=== PATIENT | male | born 1955 | race Caucasian/White ===

== ENCOUNTER 2017-02-15 19:02 | Emergency (ER) | payer MEDICARE, OTHER ==
[~2017-02-15] VITALS: Ht 172.7 cm; Wt 68.0 kg
[~2017-02-15 19:02] MED LIST: ATOR40TA PO; Benazepril Hcl PO; CARV6.252 PO; CLOP75TA2 PO; FOLI1TAB16 PO; FURO-145 PO; IPRA3AMP IH; Isosorbide Mononitrate PO
[2017-02-15] MEDS ORDERED: LIDOCAINE /MPF 1% VIAL 5 ML VIAL ONE (20:07)
[2017-02-15] MEDS ORDERED: LIDOCAINE HCL/PF 1% 30 ML SDV ONE (20:10)
--- NOTE | 2017-02-15 20:10 | NUR ---
RECEIVED REPORT AT THIS TIME. HERE FOR NECK AND LOWER BACK ABSCESSES "X2 DAYS". DENIES FEVER/N/V OR ANY OTHER C/O. RESP EVEN AND UNLABORED. CARE PLAN DISCUSSED.
[2017-02-15 21:13] VITALS: BP 122/69
--- NOTE | 2017-02-15 21:13 | NUR ---
STILL AWAITING TRANSPORT.
--- NOTE | 2017-02-15 21:29 | NUR ---
REPORT GIVEN TO [facility] EMT TRANSPORT TEAM
--- NOTE | 2017-02-15 21:32 | NUR ---
DPatient discharged to home in stable condition. Written and verbal after care instructions given. Patient verbalizes understanding of instruction.
== END 2017-02-15 21:34 | disposition home or self-care (01) ==
LOC: ER 19:03
DX: L02.11 Cutaneous abscess of neck (principal); I11.0 Hypertensive heart disease with heart failure; I25.2 Old myocardial infarction; I42.9 Cardiomyopathy, unspecified; I48.91 Unspecified atrial fibrillation; I50.9 Heart failure, unspecified; Z95.0 Presence of cardiac pacemaker; F17.200 Nicotine dependence, unspecified, uncomplicated
CPT/HCPCS: 10061; 99284; A4606; A6402; A6407; J3490; Z7610

== ENCOUNTER 2017-05-06 09:43 | Inpatient (IN) | payer MEDICARE, OTHER ==
[~2017-05-06] VITALS: Ht 180.3 cm; Wt 80.7 kg
--- NOTE | 2017-05-06 10:00 | NUR ---
PT BIB PA WITH A C/O LT INGIUNAL HERNIA. PT IS AMBULATORY WITH A CANE. PT'S PMD IS DR. STREET. DR. BILLINGS WAS AT THE BEDSIDE UPON ARRIVAL. PT REFUSED TO UNDRESS AND THEN REFUSED TO ALLOW DR. BILLINGS TO EXAMINE HIS HERNIA. PT AMBULATED TO THE BATHROOM AND URINE SAMPLE WAS OBTAINED.
--- NOTE | 2017-05-06 10:01 | NUR ---
MALAIKA RICE PAGED
--- NOTE | 2017-05-06 10:15 | NUR ---
IV ATTEMPT X1. PT WAS UNCOMFORTABLE. NEEDED TO STAND. STOPPED IV INSERTION.
[2017-05-06] MEDS ORDERED: BENA20TA78 PO (10:20)
[2017-05-06] MEDS ORDERED: HYDR-552 PO (10:20)
[2017-05-06] MEDS ORDERED: GABA-532 PO (10:20)
[2017-05-06] MEDS ORDERED: ALBU18HF2 IH (10:20)
[2017-05-06] MEDS ORDERED: ACET-868 PO (10:20)
[2017-05-06] MEDS ORDERED: MAGN400O6 PO (10:20)
[2017-05-06] MEDS ORDERED: POTA10TA15 PO (10:20)
[2017-05-06] MEDS ORDERED: ATOR10TA PO (10:20)
[2017-05-06] MEDS ORDERED: CHOL100044 PO (10:20)
[2017-05-06] MEDS ORDERED: BISA10SU8 RC (10:20)
[2017-05-06] MEDS ORDERED: ARIP5TAB4 PO (10:20)
[2017-05-06] MEDS ORDERED: CARV3.122 PO (10:20)
[2017-05-06] MEDS ORDERED: SPIR25TA PO (10:20)
[2017-05-06] MEDS ORDERED: DICL30AD3 PO (10:20)
[2017-05-06] MEDS ORDERED: FURO20TA4 PO (10:20)
[2017-05-06] MEDS ORDERED: DOCU-270 PO (10:20)
[2017-05-06] MEDS ORDERED: LORA1TAB PO (10:20)
[2017-05-06] MEDS ORDERED: FAMO20TA8 PO (10:20)
[2017-05-06] MEDS ORDERED: SERT25TA PO (10:20)
[2017-05-06] MEDS ORDERED: HYDR-548 PO (10:20)
[2017-05-06] MEDS ORDERED: BENZ1TAB7 PO (10:20)
[2017-05-06] MEDS ORDERED: LAMO25TA5 PEG (10:20)
--- NOTE | 2017-05-06 10:20 | NUR ---
EKG AT THE BEDSIDE.
--- NOTE | 2017-05-06 10:30 | NUR ---
BLOOD DRAW IN PROGRESS AT THE BEDSIDE.
--- NOTE | 2017-05-06 10:35 | NUR ---
DIGITAL PRESS OPERATOR AT BEDSIDE
[2017-05-06 10:43] LABS: BASOPHILS % (AUTO) 0.3 % (0.0-2.0); EOSINOPHILS # (AUTO) 0.1 /CMM (0.0-0.7); EOSINOPHILS % (AUTO) 1.1 % (0.0-6.0); HEMATOCRIT 34 % (39-51); HEMOGLOBIN 11.1 g/dL (13.5-17.5); LYMPHOCYTES # (AUTO) 0.7 /CMM (0.8-4.8); LYMPHOCYTES % (AUTO) 6.2 % (20.0-44.0); MEAN CORPUSCULAR HEMOGLOBIN 29 PG (26.0-33.0); MEAN CORPUSCULAR HGB CONC 33 g/dl (31.0-36.0); MEAN CORPUSCULAR VOLUME 87 fL (80-96); MONOCYTES # (AUTO) 0.3 /CMM (0.1-1.30); MONOCYTES % (AUTO) 3.1 % (2.0-12.0); NEUTROPHILS # (AUTO) 10.1 /CMM (1.8-8.9); NEUTROPHILS % (AUTO) 89.3 % (43.0-81.0); PLATELET COUNT (AUTO) 263 /CMM (150-450); RDW COEFFICIENT OF VARIATION 15.4 (11.5-15.0); RED BLOOD CELL COUNT(AUTO) 3.87 MIL/uL (4.5-6.0); WHITE BLOOD COUNT (AUTO) 11.2 K/uL (4.3-11.0)
[2017-05-06 10:52] LABS: CALCIUM, SERUM 9.2 mg/dL (8.5-10.1); CREATININE 1.5 mg/dL (0.6-1.3); POTASSIUM 4.5 mmol/L (3.5-5.1)
[2017-05-06 10:55] LABS: INR 0.89 (0.87-1.13); PROTHROMBIN TIME 9.3 SECS (9.5-12.7)
--- NOTE | 2017-05-06 11:17 | NUR ---
CALLING REPORT TO AYAZ LANDAVERDE ([phone])
[2017-05-06 11:50] VITALS: BP 109/63
--- NOTE | 2017-05-06 11:50 | NUR ---
RN NOTES RECEIVED PT FROM ER IN ROOM 115-2, A/Ox4, RESPIRATION EVEN AND UNLABORED, ON RA , O2 SAT 97%, NO SOB NOTED, C/O R INGUINAL PAIN , DR STREET NOTIFIED REGARDING ADMISSION ORDER AND NEED FOR PAIN MEDICATIONS . L THUMB IV G 22 SITE CDI, BED LOCKED AND IN LOWEST POSITION , SR UP x3, CALL LIGHT WITHIN EASY REACH, CONTINUE TO MONITOR PT CLOSELY .
[2017-05-06] MEDS ORDERED: BISACODYL SUPP (10 MG) 10 MG/SUPP.RECT SUPP.RECT RC PRN (13:30)
[2017-05-06] MEDS ORDERED: ACETAMINOPHEN 325 MG TABLET PO PRN (13:30)
[2017-05-06] MEDS ORDERED: HYDROCODONE/APAP 10/325MG 1 EA TABLET PO PRN (13:30)
[2017-05-06] MEDS ORDERED: MAGNESIUM HYDROXIDE 30 ML UDC PO PRN (13:30)
[2017-05-06] MEDS ORDERED: HYDROMORPHONE HCL 2 MG TABLET PO PRN (13:30)
[2017-05-06] MEDS ORDERED: HYDROCODONE/APAP 5/325MG 1 EACH TABLET PO PRN (13:30)
[2017-05-06] MEDS ORDERED: HYDROMORPHONE 1 MG/1 ML DISP.SYRIN IV PRN (14:00)
[2017-05-06] MEDS: ASPIRIN EC 81 MG TABLET.DR PO SCH ×2 (14:00→14:09)
--- NOTE | 2017-05-06 14:00 | NUR ---
RN NOTES PT LEAVES TO FLOOR TO SMOKE WITHOUT NOTIFY STAFF MEMBERS . DR STREET NOTIFIED. ADVISED AND EDUCATED THE PT REGARDING THE RISKS OF SMOKING AND NOT NOTIFYING THE STAFF MEMBERS, PT VERBALIZES UNDERSTANDING BUT STATED STILL WILL GO OUT TO SMOKE.
[2017-05-06] MEDS: SPIRONOLACTONE 25 MG TABLET PO SCH (14:08)
[2017-05-06] MEDS: HYDROMORPHONE INJ 2 MG/ML DISP.SYRIN IV PRN ×4 (14:09→23:21)
--- NOTE | 2017-05-06 14:10 | NUR ---
RN NOTES PT REFUSED TO HIS ASPIRIN . PT EDUCATED HOW IMPORTANT IT IS TO FOLLOW THE PLAN OF CARE AND MD'S ORDER , PT STILL REFUSED TO TAKE IT .
[2017-05-06] MEDS: LamoTRIgine 25 MG TABLET PO SCH (17:23)
--- NOTE | 2017-05-06 18:32 | NUR ---
RN NOTES PT SITTING AT THE EDGE OF THE BED, EATING DINNER , VSS STABLE , MEDICATED FOR INGUINAL PAIN PER MD ORDER , WILL ENDORSE TO COIL INSPECTOR NURSER FOR SONIDO
[2017-05-06] MEDS ORDERED: ALBUTEROL FS 2.5 MG/3 ML VIAL.NEB NEB PRN (19:30)
--- NOTE | 2017-05-06 19:30 | NUR ---
RN/MS NOTES: RECEIVED PT. IN BED SITTING A/O X 4. NOT IN ANY RESPIRATORY DISTRESS NOTED. HL ON RT. THUMP PATENT AND INTACT W/ NO S/S OF INFECTION/INFILTRATION NOTED. PT. REQUESTED SMOKING BREAK AND PAIN SHOT. PAIN MEDS DILAUDID 2 MG IV GIVEN PER ORDER. PT. ACCOMPAINED BY STAFF FOR SMOKING BREAK. PT. CONSTANTLY PACING UP AND DOWN THE HALLWAY. BRP. ABLE TO AMBULATE W/ CANE. CALL LIGHT W/ REACH. ALL NEEDS MEET.
[2017-05-06] MEDS: BENZTROPINE MESYLATE (1 MG) 1 MG TABLET PO SCH (21:07)
[2017-05-06] MEDS: GABAPENTIN 100 MG CAPSULE PO SCH (21:07)
[2017-05-06] MEDS: CARVEDILOL 3.125 MG TABLET PO SCH ×2 (21:07→21:09)
[2017-05-06] MEDS: FAMOTIDINE (20 MG) 20 MG TABLET PO SCH (21:07)
[2017-05-06] MEDS: ARIPIPRAZOLE 5 MG TABLET PO SCH (21:07)
[2017-05-06] MEDS: ATORVASTATIN 10 MG TABLET PO SCH (21:07)
[2017-05-07] VITALS (28 sets, daily range): BP systolic 52–152; BP diastolic 34–102
[2017-05-07] MEDS ORDERED: POTASSIUM CHLORIDE 20 MEQ TAB.PRT.SR PO ONE (01:00)
[2017-05-07] MEDS ORDERED: FUROSEMIDE 20 MG TABLET PO SCH ×2 (01:00→09:00)
[2017-05-07] MEDS ORDERED: FUROSEMIDE 20 MG TABLET ONE (01:07)
[2017-05-07] MEDS ORDERED: POTASSIUM CHLORIDE 10 MEQ TABLET.SA ONE (01:08)
[2017-05-07] MEDS: HYDROMORPHONE INJ 2 MG/ML DISP.SYRIN IV PRN ×5 (02:43→21:01)
[2017-05-07] MEDS: GABAPENTIN 100 MG CAPSULE PO SCH ×3 (05:27→20:45)
--- NOTE | 2017-05-07 07:25 | NUR ---
RN OPEN NOTES RECEIVED REPORT FROM PEANUT SORTER NURSE. WILL CONTINUE TO MONITOR AND ASSESS PATIENT THROUGH OUT MY SHIFT
--- NOTE | 2017-05-07 07:30 | NUR ---
RN/MS NOTES: PT. GETTING REALLY AGITATED AND WANTS TO GO TO SMOKE. PRN MEDS GIVEN REQUESTED. NPO STATUS MAINTAINED. GOING FOR LAPAROSCOPIC POSSIBLE OPEN LEFT INGUINAL HERNIA REPAIR. REPORT GIVEN TO NEXT SHIFT NURSE TO CONTINUE PLAN OF CARE.
[2017-05-07] MEDS: DOCUSATE SODIUM 100 MG CAPSULE PO SCH (08:29)
[2017-05-07] MEDS: SERTRALINE HCL 25 MG TABLET PO SCH (08:29)
[2017-05-07] MEDS: FAMOTIDINE (20 MG) 20 MG TABLET PO SCH ×2 (08:29→20:45)
[2017-05-07] MEDS: LamoTRIgine 25 MG TABLET PO SCH ×2 (08:29→17:33)
[2017-05-07] MEDS: CHOLECALCIFEROL 1,000 UNIT TABLET (VIT D3) PO SCH (08:29)
[2017-05-07] MEDS ORDERED: POTASSIUM CHLORIDE 10 MEQ TABLET.SA PO SCH (09:00)
[2017-05-07] MEDS: SPIRONOLACTONE 25 MG TABLET PO SCH (12:00)
--- NOTE | 2017-05-07 12:14 | NUR ---
PATIENT IS OFF THE FLOOR FOR SURGERY
--- NOTE | 2017-05-07 12:16 | NUR ---
1200 AND 1300 MEDS HELD. PATIENT IS OFF THE FLOOR
[2017-05-07] MEDS ORDERED: SUCCINYLCHOLINE CHLORIDE 20 MG/ML VIAL ONE (12:38)
[2017-05-07] MEDS ORDERED: ROCURONIUM BROMIDE 50 MG/5 ML ONE (12:38)
[2017-05-07] MEDS ORDERED: FENTANYL PF 100MCG/2ML AMPUL ONE (12:38)
[2017-05-07] MEDS ORDERED: MIDAZOLAM HCL 2 MG/2ML VIAL ONE (12:39)
[2017-05-07] MEDS ORDERED: BUPIVACAINE MPF INJ 0.75% W/EP 30 ML VIAL ONE (12:45)
[2017-05-07] MEDS ORDERED: LIDOCAINE 1% INJ 50 ML MDV IJ ONE (13:58)
[2017-05-07] MEDS ORDERED: BUPIVACAINE 0.5 % PF 150 MG/30 ML VIAL ONE (13:58)
[2017-05-07] MEDS ORDERED: FUROSEMIDE 20 MG/2 ML VIAL ONE (16:01)
--- NOTE | 2017-05-07 16:15 | NUR ---
PATIENT IS TRANSFERRED TO ICU FROM SURGERY
--- NOTE | 2017-05-07 16:28 | NUR ---
ICU/RN: RECEIVED PT FROM OR, RECEIVED REPORT FROM , ANESTHESIOLOGIST. PT INTUBATED, ETT 7.0 23CM AT THE LIP, ON VENT SETTINGS ORDERED BY MD. PT ONLY RESPONDS TO PAINFUL STIMULI, DOES NOT FOLLOW COMMANDS AT THIS TIME. PACEMAKER IN PLACE, AV PACING. PIVS PATENT AND INTACT. RIGHT RADIAL ART LINE IN PLACE. ZEROED AND CALIBRATED. GOOD WAVE FORM. LAWSON CATH IN PLACE, DRAINING YELLOW URINE. STAT EKG DONE. LEFT JEWELS DRAIN NOTED, MINIMAL OUTPUT. LEFT LAP SITE C/D/I, NO S/S OF BLEEDING NOTED. ALL NEEDS WILL BE MET, SAFETY MEASURES TAKEN, BED IN LOW POSITION, SIDE RIALS UP, CALL LIGHT WITHIN REACH. WILL CONTINUE CARE.
--- NOTE | 2017-05-07 16:28 | NUR ---
GAVE REPORT TO ICU NURSE.
--- NOTE | 2017-05-07 17:00 | NUR ---
ICU/RN: PER MD ORDERS OG TUBE INSERTED. PLACEMENT VERIFIED WITH 2 RNS.
--- NOTE | 2017-05-07 17:06 | NUR ---
ALL PERSONAL BELONGING TRANSFERRED TO ICU.
--- NOTE | 2017-05-07 18:30 | NUR ---
ICU/RN: PT TRASHING/KICKING, ATTEMPTING TO PULL OUT ET TUBE. PT OPENS EYES, FOLLOWS SIMPLE COMMANDS. PER MD ORDERS DIPRIVAN STARTED PER PROTOCOL. ABG DRAWN, WILL REPEAT IN ONE HOUR, PER MD CHANGES MADE.
[2017-05-07 18:31] LABS: ABG BASE EXCESS -5.9 mmol/L; ABG OXYGEN SATURATION 92.5 % (92.0-98.5); ABG PCO2 75.5 mmHg (35.0-45.0); ABG PH 7.134 (7.350-7.450); ABG PO2 82.7 mmHg (75.0-100.0); AaDO2 554.8 mmHg; COHb 1.4 % (0.5-1.5); MetHb 0.8 % (0.0-1.5); O2Hb 90.5 % (94.0-97.0); SITE, ABG A-Line
[2017-05-07] MEDS: PROPOFOL 100 ML IV PRN ×2 (18:33→22:49)
--- NOTE | 2017-05-07 18:53 | NUR ---
ICU/RN: BP 88/52, SEDATED ON DIPRIVAN 15MCG. IGNACIO LAGUNA CALLED, TLO ORDERS PENDING.
--- NOTE | 2017-05-07 19:17 | NUR ---
ICU/RN: CALLED, ISSUES ADDRESSED. TLO ORDERS RECEIVED FOR LEVOPHED, CENTRAL LINE AND TO INCREASE DIPRIVAN TO 100MCG. WILL FOLLOW THROUGH. BILATERAL WRIST RESTRAINTS IN PLACE FOR SAFETY. BED IN LOW POSITION, SIDE RAILS UP, BED ALARM ON. LAWSON IN PLACE. JEWELS IN PLACE, MINIMAL DRAINAGE. PICC LINE RN INFORMED, WILL BE HERE TO INSERT. ENDORSED REPORT FOR CONTINUATION OF CARE
[2017-05-07] MEDS: NOREPINEPHRINE 16 MG in IV D5W 500 ML IV PRN (19:28)
--- NOTE | 2017-05-07 19:50 | NUR ---
SITE IDENTIFICATION SPECIALIST DF PT HAS ORDER FOR PICC LINE PLACEMENT CONSENT RECEIVED FROM SON LORENA BENEDICT ADVISED FAMILY OF PT,S HOSPITALIZATION/SURGERY. XOCHITL STEWART @ BEDSIDE FOR PICC LINE PLACEMENT. PT HYPOTENSIVE AT 65/56. 54/33 PT STARTED ON LEVOPHED GTT TITRATED TO 20MCG/DIPRIVAN GTT DECREASED TO 40MCG/MIN. BP INCREASED TO 107/56. PT S/P SGY LEFT INGUINAL HERNIA REPAIR. VSS S/P LEVOPHED GTT.
[2017-05-07] MEDS: ARIPIPRAZOLE 5 MG TABLET PO SCH (20:45)
[2017-05-07] MEDS: CARVEDILOL 3.125 MG TABLET PO SCH (20:45)
[2017-05-07] MEDS: BENZTROPINE MESYLATE (1 MG) 1 MG TABLET PO SCH (20:46)
[2017-05-07] MEDS: ATORVASTATIN 10 MG TABLET PO SCH (20:46)
[2017-05-07 21:16] LABS: ABG BASE EXCESS -3.2 mmol/L; ABG PCO2 37.4 mmHg (35.0-45.0); ABG PH 7.377 (7.350-7.450); ABG PO2 330.2 mmHg (75.0-100.0); COHb 0.4 % (0.5-1.5); MetHb 0.9 % (0.0-1.5); O2Hb 97.7 % (94.0-97.0); PEEP,BG 10 cm H2O; SITE, ABG A-Line; VT, ABG 700 mL
--- NOTE | 2017-05-07 21:27 | NUR ---
MERRY GO ROUND ATTENDANT DF PT ABG RESULTED VALUE OF PH 7.37/CO2 37/PO2 330/HCO3 21.5/ PT CURRENT VENT SETTINGS [id number]% AND PEEP OF 10. PT ON LEVOPHED GTT FOR HYPOTENSION. PAGED [facility] FOR UPDATE AWAITING CALL BACK.
[2017-05-08] VITALS (71 sets, daily range): BP systolic 62–170; BP diastolic 39–91
[2017-05-08] MEDS: HYDROMORPHONE INJ 2 MG/ML DISP.SYRIN IV PRN ×5 (00:23→23:49)
--- NOTE | 2017-05-08 00:24 | NUR ---
SATELLITE DISH REPAIRER DF PT MEDICATED WITH DILAUDID 2MG IVP PRN POST OP PAIN HERNIA REPAIR ON 05/07. PRIOR TO INTERVENTION PT RESTLESS,MOVING BUE/BLE, SWEATING, WITH FACIAL GRIMACING. INTERVENTION EFFECTIVE POST DILAUDID ADMIN. PT WITH BILATERAL SOFT WRIST RESTRAINTS FOR SAFETY. PT EXTUBATION RISK. VSS.NAD NOTED. LEVOPHED GTT DECREASED TO 12MCG BP OF 121/77 VIA RIGHT WRIST DANISH. Addendum: 05/08/17 at 0029 by LORENA HUTSON RN LEVOPHED INCREASED TO 15MCG DANISH BP OF 90/50.
--- NOTE | 2017-05-08 01:20 | NUR ---
BOX TOE CUTTER DF DIPRIVAN GTT INCREASED TO 60 MCG. PT AGITATED,RESTLESS.
[2017-05-08] MEDS: PROPOFOL 100 ML IV PRN ×6 (02:38→21:30)
--- NOTE | 2017-05-08 03:21 | NUR ---
FIELD IDENTIFICATION SPECIALIST DF PT MEDICATED WITH DILAUDID 2MG PRIOR TO AM CARE. PT AGITATED RESTLESS, FLAILING BLE. PT S/P SGY HERNIA REPAIR ON 05/07. SEDATION DIPRIVAN DECREASED TO 40MCG.
[2017-05-08] MEDS: GABAPENTIN 100 MG CAPSULE PO SCH ×4 (04:08→20:34)
[2017-05-08 04:44] LABS: BASOPHILS # (AUTO) 0.1 /CMM (0.0-0.2); BASOPHILS % (AUTO) 0.6 % (0.0-2.0); EOSINOPHILS % (AUTO) 0.1 % (0.0-6.0); HEMATOCRIT 35 % (39-51); HEMOGLOBIN 11.5 g/dL (13.5-17.5); LYMPHOCYTES % (AUTO) 5.9 % (20.0-44.0); MEAN CORPUSCULAR HEMOGLOBIN 29 PG (26.0-33.0); MEAN CORPUSCULAR HGB CONC 33 g/dl (31.0-36.0); MEAN CORPUSCULAR VOLUME 87 fL (80-96); MONOCYTES % (AUTO) 5.6 % (2.0-12.0); NEUTROPHILS # (AUTO) 15.4 /CMM (1.8-8.9); NEUTROPHILS % (AUTO) 87.8 % (43.0-81.0); PLATELET COUNT (AUTO) 403 /CMM (150-450); RDW COEFFICIENT OF VARIATION 16.6 (11.5-15.0); RED BLOOD CELL COUNT(AUTO) 4.01 MIL/uL (4.5-6.0); WHITE BLOOD COUNT (AUTO) 17.6 K/uL (4.3-11.0)
[2017-05-08 05:02] LABS: ALBUMIN 2.6 g/dL (3.4-5.0); BILIRUBIN,TOTAL 0.3 mg/dL (0.2-1.0); CALCIUM, SERUM 8.6 mg/dL (8.5-10.1); CREATININE 2.4 mg/dL (0.6-1.3); POTASSIUM 5.3 mmol/L (3.5-5.1); TOTAL PROTEIN, SERUM 6.7 g/dL (6.4-8.2)
--- NOTE | 2017-05-08 06:39 | NUR ---
ENGRAVER LETTERING DF PT C/O PAIN. PT REQUESTED NITRO SL 0.4 ADMIN X1. POST 5 MIN PT DENIES CHEST PAIN. PT C/O PAIN TO ABDOMEN AND ESOPHAGEAL 2ND CANCER. PREVIOUSLY NOTED DILAUDID 0.5 MG @0430 FOLLOWED BY PERCOCET ABOUT 20 MIN AGO. PT STATING HE FEELS DILAUDID 0.5MG NOT GIVEN. I REASSURED PT DOSE WAS ADMIN AND I WILL NOTIFY MD THAT PT FEELS THE FREQUENCY OF DILAUDID Q6 IS NOT EFFECTIVE WITH HIS PAIN MGMT. I EDUCATED PT ON PERCOCET AND INFORMED PT TO WAIT TO DETERMINE IS EFFECTIVENESS. CALL PLACED TO [employer] PANEL AWAITING CALL BACK.
--- NOTE | 2017-05-08 07:30 | NUR ---
ICU/RN: PT RECEIVED, INTUBATED, NO DISTRESS NOTED. SEDATED ON 50MCG/KG/MIN OF DIPRIVAN. TOLERATING CURRENT VENT SETTINGS. HSAE PICC PATENT, FLUSHED WITH GOOD BLOOD RETURN. R RADIAL ART-LINE WITH GOOD WAVEFORM, ZEROED AND CALIBRATED PER PROTOCOL. OGT AUSCULTATED, POSITIVE PLACEMENT. LAP SITES X3 JEREMIAH, KEPT CLEAN AND DRY, NO S/S INFECTION NOTED. L ABD JEWELS DRAIN SET TO SUCTION, WITH SEROSANGUINEOUS DRAINAGE. DRESSING C/D/I. FC DRAINING WELL TO GRAVITY. ALARM SOUNDS AUDIBLE. WILL CONT TO MONITOR PT STATUS.
--- NOTE | 2017-05-08 08:20 | NUR ---
RT NOTE: LATE ENTRY- PATIENT RECEIVED ORALLY INTUBATED WITH 7.5 ETT SECURED AT 23 CM. ETT ADVANCED TO 27 CM MID LIP LINE PER .
[2017-05-08] MEDS: CHOLECALCIFEROL 1,000 UNIT TABLET (VIT D3) PO SCH (09:00)
[2017-05-08] MEDS ORDERED: BUMETANIDE INJ 8 MG in IV NS 0.9% 48 ML IV ONE (09:00)
[2017-05-08] MEDS: SERTRALINE HCL 25 MG TABLET PO SCH (09:00)
[2017-05-08] MEDS: DOCUSATE SODIUM 100 MG CAPSULE PO SCH (09:00)
[2017-05-08] MEDS: FAMOTIDINE (20 MG) 20 MG TABLET PO SCH ×2 (09:00→20:31)
[2017-05-08] MEDS: LamoTRIgine 25 MG TABLET PO SCH ×2 (09:00→16:19)
--- NOTE | 2017-05-08 09:00 | NUR ---
ICU/RN: DR PARSONS AT THE BEDSIDE FOR CARDIOLOGY CONSULT. LABS, CARDIAC AND RESP STATUS DISCUSSED S/P L INGUINAL HERNIA REPAIR. ORDERS OBTAINED FOR CXR; MD AT BEDSIDE FOR READING. ORDERS TO ADVANCE ETT. PER MD, DEFER TO PULMONOLOGY FOR FURTHER ORDERS. ABG DRAWN FROM A-LINE, PATENT. FLUSHED, RECALIBRATED PER PROTOCOL. NEW ORDERS NOTED AND CARRIED OUT.
--- NOTE | 2017-05-08 09:05 | NUR ---
ICU/RN: PT PLACED ON SEDATION VACATION AT BEGINNING OF SHIFT. PT AWAKE, RESTLESS, THRASHING, ATTEMPTING TO SIT UP AND PULL LINES. RESTRAINTS IN PLACE. ATTEMPTED TO CALM PT, INSTRUCTED TO FOLLOW SIMPLE COMMANDS, PT MOUTHS "NO." NO NEURO DEFICITS NOTED WITH LIMITED ASSESSMENT, PT ABLE TO MOVE BILAT UPPER AND LOWER EXTREMITIES.
--- NOTE | 2017-05-08 09:15 | NUR ---
ICU/RN: ETT TUBE ADVANCED PER MD ORDER. ETT 7.0 AT 27 CM LIP LINE. BREATH SOUNDS EQUAL, BREATHING EVEN AND UNLABORED. OGT AUSCULTATED POSITIVE PLACEMENT NOTED.
--- NOTE | 2017-05-08 09:19 | NUR ---
ICU/RN: ABG RESULTS REPORTED TO DR PIERRE WITH VENT CHANGES NOTED AND CARRIED OUT. INFORMED OF ADVANCEMENT OF ETT TUBE BY RT LION.
[2017-05-08 09:42] LABS: ABG BASE EXCESS -1.3 mmol/L; ABG PCO2 26.9 mmHg (35.0-45.0); ABG PH 7.503 (7.350-7.450); ABG PO2 134.8 mmHg (75.0-100.0); AaDO2 191.4 mmHg; COHb 0.1 % (0.5-1.5); MetHb 0.9 % (0.0-1.5); PEEP,BG 5 cm H2O; SITE, ABG Right Radial; VT, ABG 700 mL
[2017-05-08 09:54] LABS: THYROID STIMULATING HORMONE 0.491 uIU/mL (0.358-3.74)
[2017-05-08 10:23] LABS: TROPONIN I 0.077 ng/mL (0.00-0.056)
[2017-05-08 10:36] LABS: PHOSPHORUS 3.8 mg/dL (2.5-4.9)
[2017-05-08] MEDS: NOREPINEPHRINE 16 MG in IV D5W 500 ML IV PRN (12:33)
--- NOTE | 2017-05-08 13:00 | NUR ---
ICU/RN: DR STREET AT THE BEDSIDE; UPDATED ON PT STATUS, POST OP DAY 1. PER MD FLORECITA TO RESTART DVT PROPHYLAXIS, ANTICOAGS. NO DVT PUMPS PER . OK TO ADMINISTER MEDS THROUGH OGT. NOTED. CARRIED OUT.
--- NOTE | 2017-05-08 15:30 | NUR ---
ICU/RN: BED BATH, ORAL AND WOUND CARE RENDERED. PT HAD PERIODS OF AGITATION AND RESTLESSNESS DURING PROCEDURE. COMFORT MEASURES PROVIDED. WILL CONT TO MONITOR PT.
--- NOTE | 2017-05-08 17:00 | NUR ---
ICU/RN: CHRISTINE HOUSTON, CLIMATOLOGIST AT BEDSIDE FOR SURGICAL F/U. INFORMED OF MINIMAL JEWELS DRAINAGE. LAP SITES REMAIN C/D/I. DECREASED SCROTAL SWELLING. NO NEW ORDERS.
--- NOTE | 2017-05-08 19:16 | NUR ---
ICU/RN: PT NO S/S DISTRESS, SEDATED ON DIPRIVAN, BREATHING EVEN AND UNLABORED. A-LINE READINGS WITH GOOD WAVEFORM. OGT CLAMPED. FC DRAINING WELL TO GRAVITY. BEDSIDE REPORT GIVEN TO AYAZ MURRAY.
--- NOTE | 2017-05-08 19:55 | NUR ---
WINDOWS SECURITY ANALYST DF RECEIVED PT TO ROOM#257 PT INTUBATED,SEDATED ON DIPRIVAN @55MCG/LEVOPHED BP SUPPORT @10MCG CURRENT DANISH BP OF 127/55.POC RESUME PT PO MEDS PER PMD. PT S/P HERNIA REPAIR ON 05/07 ABDOMEN SOFT NON TENDER, SURGICAL SITES WNL. LLQ JEWELS WITH MIN DRAINAGE. PT IN SOFT BILATERAL WRIST RESTRAINTS FOR PT SAFETY. VSS. NAD NOTED.
[2017-05-08] MEDS: ARIPIPRAZOLE 5 MG TABLET PO SCH (20:55)
--- NOTE | 2017-05-08 20:56 | NUR ---
SENIOR TELECOMMUNICATIONS ENGINEER YARELI CANDELARIA HELD PER MD ORDERS: PROGRESS NOTE FOLLOWED: Chronic mental illness -- aripiprazole will be restarted once the propofol has been discontinued and he is awake and responsive.
[2017-05-08] MEDS: ATORVASTATIN 10 MG TABLET PO SCH (21:03)
[2017-05-08] MEDS: BENZTROPINE MESYLATE (1 MG) 1 MG TABLET PO SCH (21:03)
--- NOTE | 2017-05-08 23:49 | NUR ---
DIGITAL MARKETING OFFICER DF PT OBSERVED RESTLESS AGITATED FLAILING BLE/ATTEMPTING TO RAISE UPPER BODY OUT OF BED. DILAUDID 2MG IVP ADMIN PRN PAIN. POST OP DAY #2. VSS.NAD NOTED. ORAL/ETT SUCTIONING PROVIDED.
[2017-05-09] VITALS (58 sets, daily range): BP systolic 93–164; BP diastolic 46–109
[2017-05-09] MEDS: PROPOFOL 100 ML IV PRN ×3 (01:37→08:42)
[2017-05-09 04:47] LABS: BASOPHILS % (AUTO) 0.3 % (0.0-2.0); EOSINOPHILS # (AUTO) 0.2 /CMM (0.0-0.7); EOSINOPHILS % (AUTO) 1.4 % (0.0-6.0); HEMATOCRIT 33 % (39-51); HEMOGLOBIN 10.9 g/dL (13.5-17.5); LYMPHOCYTES # (AUTO) 1.7 /CMM (0.8-4.8); LYMPHOCYTES % (AUTO) 12.7 % (20.0-44.0); MEAN CORPUSCULAR HEMOGLOBIN 29 PG (26.0-33.0); MEAN CORPUSCULAR HGB CONC 33 g/dl (31.0-36.0); MEAN CORPUSCULAR VOLUME 87 fL (80-96); MONOCYTES # (AUTO) 0.9 /CMM (0.1-1.30); MONOCYTES % (AUTO) 6.8 % (2.0-12.0); NEUTROPHILS # (AUTO) 10.6 /CMM (1.8-8.9); NEUTROPHILS % (AUTO) 78.8 % (43.0-81.0); PLATELET COUNT (AUTO) 346 /CMM (150-450); RDW COEFFICIENT OF VARIATION 16.8 (11.5-15.0); RED BLOOD CELL COUNT(AUTO) 3.76 MIL/uL (4.5-6.0); WHITE BLOOD COUNT (AUTO) 13.5 K/uL (4.3-11.0)
[2017-05-09 05:06] LABS: TROPONIN I 0.059 ng/mL (0.00-0.056)
[2017-05-09] MEDS: HYDROMORPHONE INJ 2 MG/ML DISP.SYRIN IV PRN ×5 (05:25→23:06)
[2017-05-09 05:37] LABS: ALBUMIN 2.8 g/dL (3.4-5.0); BILIRUBIN,TOTAL 0.4 mg/dL (0.2-1.0); CALCIUM, SERUM 8.9 mg/dL (8.5-10.1); MAGNESIUM 2.1 mg/dL (1.8-2.4); PHOSPHORUS 4.8 mg/dL (2.5-4.9); POTASSIUM 4.4 mmol/L (3.5-5.1); TOTAL PROTEIN, SERUM 6.8 g/dL (6.4-8.2)
--- NOTE | 2017-05-09 05:45 | NUR ---
WEB SIZER DF PT AGITATED,RESTLESS, FLAILING BLE. AWAKE WITH FACIAL GRIMACING. PT ADMIN DILAUDID 2 MG IVP. VSS. INTERVENTION EFFECTIVE. PT SEDATED,CALM,COOPERATIVE.
--- NOTE | 2017-05-09 07:10 | NUR ---
PT RECEIVED IN ICU ORALLY INTUBATED ON MECHANICAL VENT W/ SETTING PER MD. VENT IN RED OUTLET, AMBUBAG AT BEDSIDE, VENT ALARMS CHECKED AND AUDIBLE. PT SX'ED AND LAVAGED PRN TO MOD AMOUNTS OF THICK ORTEGA/BLOOD TINGED SECRETIONS. BREATH SOUNDS EQUAL, CLEAR/DIMINISHED, ETT CLEAN AND SECURE. EKG DONE PER MD ORDER. PLAN IS TO CONTINUE CARE W/ CURRENT MD ORDERS AND MONITOR FOR CHANGES. Addendum: 05/09/17 at 0810 by CHIN MEEKS RT Amended: Links added.
[2017-05-09] MEDS ORDERED: BUMETANIDE INJ 8 MG in IV NS 0.9% 48 ML IV ONE (08:00)
[2017-05-09] MEDS: DOCUSATE SODIUM 100 MG CAPSULE PO SCH (08:08)
[2017-05-09] MEDS: LamoTRIgine 25 MG TABLET PO SCH ×2 (08:09→17:45)
[2017-05-09] MEDS: SERTRALINE HCL 25 MG TABLET PO SCH (08:09)
[2017-05-09] MEDS: CHOLECALCIFEROL 1,000 UNIT TABLET (VIT D3) PO SCH (08:09)
[2017-05-09] MEDS: Z GUARD REMEDY 2 OZ OINT TP SCH (08:09)
[2017-05-09] MEDS: CLOPIDOGREL BISULFATE 75 MG TABLET PO SCH (08:47)
[2017-05-09] MEDS: FAMOTIDINE (20 MG) 20 MG TABLET PO SCH ×2 (08:47→20:19)
[2017-05-09] MEDS: ASPIRIN 81 MG TAB.CHEW PO SCH (08:47)
[2017-05-09] MEDS ORDERED: DC PROPOFOL WHEN EXTUBATED XX PRN (09:00)
--- NOTE | 2017-05-09 09:27 | NUR ---
SEDATION VACATION INITIATED, PT IS INTERMITTENTLY MOVING AND OPENING EYES AT 40MCG WILL CONTINUE TO TITRATE DOWN AND OFF, PLAN FOR WEAN TODAY, DR. PIERRE ON THE UNIT PLACED THE ORDERS.
--- NOTE | 2017-05-09 09:46 | NUR ---
PT AWAKE, AGITATED BUT FOLLOWS COMMANDS NOT TO PULL OUT THE ETT TUBE. LEVOPHED TITRATED ALL THE WAY OFF HIS BP WHEN AWAKE IS AT 140'S, WHILE OFF LEVOPHED BP DROPS TO 119/72. HE IS AGITATED AND THRASHES AROUND BUT BREATHING AT A RATE 22-30 WITH VOLUMES AT 400-500. UNDERSTANDS THOROUGH EDUCATION ABOUT THE WEANING TRIAL.
--- NOTE | 2017-05-09 09:54 | NUR ---
PT REMAINS AGITATED, THRASHING ABOUT, STRICTLY COACHING HIM TO FOCUS ON BREATHING DEEP AND SLOWLY, HE FOLLOWS COMMANDS BUT HITS THE BEDSIDE RAILS, HAS NOT TRIED TO PULL OUT ETT TUBE. I AM AT BEDSIDE FOR SAFETY. RESPIRATORY RATE IN THE 20-30'S AND VOLUMES AT 400-600ML'S SO FAR.
--- NOTE | 2017-05-09 09:55 | NUR ---
LEVOPHED TITRATED OFF. SBP HIGH 130'S
[2017-05-09 10:26] LABS: ABG BASE EXCESS -0.2 mmol/L; ABG PCO2 36.6 mmHg (35.0-45.0); ABG PH 7.431 (7.350-7.450); ABG PO2 144.4 mmHg (75.0-100.0); AaDO2 170.9 mmHg; COHb 0.3 % (0.5-1.5); MetHb 0.9 % (0.0-1.5); O2Hb 96.8 % (94.0-97.0); PEEP,BG 5 cm H2O; SITE, ABG A-Line; VENT MODE, BG SIMV 4 PS 12
--- NOTE | 2017-05-09 10:40 | NUR ---
PT EXTUBATED PER MD ORDER AND PLACED ON 4 L NC. NO RESP DISTRESS NOTED, PT ABLE TO VOCALIZE, AWAKE/ALERT AT THIS TIME.
--- NOTE | 2017-05-09 11:10 | NUR ---
PT EXTUBATED. 2 LITERS NC AT 94%. HE IS ALERT ORIENTED REMEMBERS THE SURGERY FOR HERNIA REPAIR. LABILE MOOD, HE IS HYPERACTIVE, WITH PRESSURED SPEECH LAUGHING AND SOMEWHAT RAMBLING. NON AGGRESSIVE AT THIS TIME.
--- NOTE | 2017-05-09 11:51 | NUR ---
PAGED FOR DR. STREET, PT'S PAIN MEDICATIONS WERE DC THIS MORNING, POSSIBLY DUE TO BEING ON LEVOPHED FOR CARDIOVASCULAR SUPPORT. PT IS CRYING AND GRASPING HIS ABDOMEN DUE TO PAIN ASKING SPECIFICALLY FOR DILAUDID. REFUSING NORCO WHICH IS ON HIS MED LIST. AWAITING CALL BACK FROM DR. STREET AND WILL ASK FOR SWALLOW EVAL AND POSSIBLY DIET.
--- NOTE | 2017-05-09 12:12 | NUR ---
DR. STREET CALLS BACK AND OKAYS TO RESTART THE DILAUDID PRN MEDICATIONS WHICH WERE PRESCRIBED BEFORE HE WAS INTUBATED AND ON PRESSORS. HE ALSO OKAY TO RESTART PO MEDICATIONS AND CARDIAC DIET. NO SWALLOW EVAL NECESSARY PER DR. STREET HE HAD NO SWALLOW PROBLEMS PRIOR TO SX
[2017-05-09] MEDS ORDERED: HYDROMORPHONE INJ 2 MG/ML DISP.SYRIN IV PRN (12:30)
[2017-05-09] MEDS: GABAPENTIN 100 MG CAPSULE PO SCH ×2 (12:48→20:19)
[2017-05-09] MEDS: CARVEDILOL 3.125 MG TABLET PO SCH (22:06)
[2017-05-09] MEDS: ARIPIPRAZOLE 5 MG TABLET PO SCH (22:06)
[2017-05-09] MEDS: ATORVASTATIN 10 MG TABLET PO SCH (22:06)
[2017-05-09] MEDS: BENZTROPINE MESYLATE (1 MG) 1 MG TABLET PO SCH (22:06)
--- NOTE | 2017-05-09 22:07 | NUR ---
DATA PROGRAMMER DF COREG NOT GIVEN EARLIER BP WAS LOW OF 100/56. NOW 146/93 MED GIVEN ORDERED.
--- NOTE | 2017-05-09 23:13 | NUR ---
STOCK PULLER DF PT ADMIN DILAUDID 2MG IVP PRN PAIN 2ND POST OP DAY #3.PT CALM,COOPERATIVE, NEEDY AT TIMES PT DOES NOT LIKE TO BE ALONE. EMOTIONAL SUPPORT PROVIDED. PT BECOMES VERY AGITATED,RESTLESS WHEN ALONE IN THE ROOM. PER ORDERS PT PROVIDED WHEELCHAIR AND ESCORTED WITHIN THE ICU UNIT BY RN. PT BECAME VERY COOPERATIVE, ALTHOUGH DOES NOT LIKE TO BE ALONE AND IS IN CONSTANT NEED OF A SHOER. SUPPORT PROVIDED ABLE.
[2017-05-10] VITALS (16 sets, daily range): BP systolic 80–159; BP diastolic 52–87
--- NOTE | 2017-05-10 00:43 | NUR ---
CONFERENCE SERVICES DIRECTOR DF PT REFUSING TO HAVE CONTINUOS EKG/PULSE OX. PMD INFORMED OKAY TO MONITOR Q 1 HOUR. PT WAS EXTUBATED TODAY, DOING WELL O2SAT OF 95-96%. PT CONNECTED BACK TO MONITOR WITH VSS.
[2017-05-10] MEDS: HYDROMORPHONE INJ 2 MG/ML DISP.SYRIN IV PRN ×4 (02:21→22:30)
[2017-05-10 04:58] LABS: BASOPHILS % (AUTO) 0.3 % (0.0-2.0); EOSINOPHILS # (AUTO) 0.2 /CMM (0.0-0.7); EOSINOPHILS % (AUTO) 1.4 % (0.0-6.0); HEMATOCRIT 35 % (39-51); HEMOGLOBIN 11.7 g/dL (13.5-17.5); LYMPHOCYTES # (AUTO) 1.9 /CMM (0.8-4.8); LYMPHOCYTES % (AUTO) 12.3 % (20.0-44.0); MEAN CORPUSCULAR HEMOGLOBIN 29 PG (26.0-33.0); MEAN CORPUSCULAR HGB CONC 33 g/dl (31.0-36.0); MEAN CORPUSCULAR VOLUME 86 fL (80-96); MONOCYTES # (AUTO) 1.3 /CMM (0.1-1.30); MONOCYTES % (AUTO) 8.4 % (2.0-12.0); NEUTROPHILS # (AUTO) 11.7 /CMM (1.8-8.9); NEUTROPHILS % (AUTO) 77.6 % (43.0-81.0); PLATELET COUNT (AUTO) 370 /CMM (150-450); RDW COEFFICIENT OF VARIATION 16.9 (11.5-15.0); RED BLOOD CELL COUNT(AUTO) 4.06 MIL/uL (4.5-6.0); WHITE BLOOD COUNT (AUTO) 15.1 K/uL (4.3-11.0)
[2017-05-10] MEDS: GABAPENTIN 100 MG CAPSULE PO SCH ×3 (05:02→21:30)
[2017-05-10 05:19] LABS: TROPONIN I 0.073 ng/mL (0.00-0.056)
[2017-05-10 05:21] LABS: ALBUMIN 3.3 g/dL (3.4-5.0); BILIRUBIN,TOTAL 0.7 mg/dL (0.2-1.0); CALCIUM, SERUM 9.2 mg/dL (8.5-10.1); CREATININE 2.1 mg/dL (0.6-1.3); MAGNESIUM 2.1 mg/dL (1.8-2.4); PHOSPHORUS 4.7 mg/dL (2.5-4.9); POTASSIUM 4.2 mmol/L (3.5-5.1); TOTAL PROTEIN, SERUM 7.9 g/dL (6.4-8.2)
--- NOTE | 2017-05-10 06:16 | NUR ---
DISPATCHER RADIOACTIVE WASTE DISPOSAL DF PT BEING ADMIN DILAUDID Q 3 HOUR RECEIVING 2 MG LAST RECEIVED @ 0500 NOT DUE AGAIN UNTIL 0800. PT BEING VERBALLY ABUSIVE TOWARDS WITH MANIC EPISODES. PT CURSING AT STAFF/RN DEMANDING HE RECEIVE MORE PAIN MEDICATION.PT REFUSING NORCO 1-2 TABS FOR BREAKTHROUGH PAIN.PT UNDERSTANDS HE HAS TO WAIT UNTIL 0800 FOR IV MEDICATION. PT DEMANDING TO AMBULATE IN UNIT WITHOUT ASSISTANCE. I AM UNABLE TO ASSIST PT WITH AMBULATION/WHEELCHAIR ROUNDS WITH PT. I EXPLAINED TO PT IS TOWARDS END OF SHIFT AND ALL STAFF INCLUDING MYSELF ARE BUSY HELPING OTHER PATIENTS. I HAVE SPENT WELL OVER 9 HOURS WITH PATIENT DURING MY SHIFT. PT BEING VERBALLY ABUSIVE AND THREATENING TOWARD ME. PESTICIDE CHEMIST AYALA Sumner IN ROOM TO ASSIST WITH PT BEHAVIORAL PROBLEMS. VSS.NAD NOTED. PT REFUSING CONTINUOUS MONITORING OF BP/PULSE OX AND EKG. PT AWAITING MD TO DISCUSS PAIN MGMT OPTIONS.
[2017-05-10] MEDS: SERTRALINE HCL 25 MG TABLET PO SCH (08:24)
[2017-05-10] MEDS: ASPIRIN 81 MG TAB.CHEW PO SCH (08:24)
[2017-05-10] MEDS: CLOPIDOGREL BISULFATE 75 MG TABLET PO SCH (08:24)
[2017-05-10] MEDS: DOCUSATE SODIUM 100 MG CAPSULE PO SCH (08:25)
[2017-05-10] MEDS: CARVEDILOL 3.125 MG TABLET PO SCH ×2 (08:25→21:30)
[2017-05-10] MEDS: LamoTRIgine 25 MG TABLET PO SCH ×2 (08:25→16:44)
[2017-05-10] MEDS: FUROSEMIDE 20 MG TABLET PO SCH ×2 (08:26→16:43)
[2017-05-10] MEDS: FAMOTIDINE (20 MG) 20 MG TABLET PO SCH ×2 (08:26→21:30)
[2017-05-10] MEDS: BENAZEPRIL HCL 10 MG TABLET PO SCH (08:26)
[2017-05-10] MEDS: CHOLECALCIFEROL 1,000 UNIT TABLET (VIT D3) PO SCH (08:27)
[2017-05-10] MEDS: Z GUARD REMEDY 2 OZ OINT TP SCH (08:34)
[2017-05-10] MEDS: HYDROMORPHONE 2 MG/1 ML SDV IV PRN ×3 (08:39→14:50)
[2017-05-10] MEDS ORDERED: HYDROMORPHONE 2 MG/1 ML SDV IV PRN (09:00)
[2017-05-10] MEDS ORDERED: HYDROMORPHONE INJ 2 MG/ML DISP.SYRIN IV PRN ×2 (18:00)
--- NOTE | 2017-05-10 19:17 | NUR ---
PATIENT LEFT UNIT BY HIMSELF AFTER BEING TOLD MULTIPLE TIMES HE CANNOT LEAVE TO GO OUT AND SMOKE, CALL RECEIVED FROM THE FRONT SECURITY DESK THAT PATIENT WAS THERE LEAVING TO GO OUTSIDE AND SMOKE AND NEED TO BE PICKED UP TO RETURN TO UNIT. ON ARRIVAL TO [facility] PATIENT WAS OUTSIDE SMOKING WITH OTHER PATIENT AND A RECEIVABLE CLERK WAS THERE, SECOND RECEIVABLE CLERK WENT OUTSIDE TO ACCOMPANY PATIENT BACK TO UNIT.
--- NOTE | 2017-05-10 19:30 | NUR ---
RN INITIAL NOTES PATIENT RETURNED FROM SMOKING A CIGARETTE, ACCOMPANIED BY HOSPITAL STAFF. PATIENT AMBULATING STEADILY WITH CANE. PATIENT IS ALERT AND ORIENTED X3, BUT NONCOMPLIANT WITH INSTRUCTIONS. TECHNICAL INTERN PROVIDER PAGED, AWAITING CALL BACK. STAFF WITH PATIENT AT ALL TIMES FOR SAFETY. BREATHING EVEN AND NONLABORED, TOLERATING ROOM AIR WELL. SHAE PICC PATENT AND INTACT, FLUSHED WITH NS. PLAN OF CARE DISCUSSED WITH THE PATIENT WITH VERBALIZATION OF UNDERSTANDING. WILL CONTINUE TO CLOSELY MONITOR THE PATIENT
--- NOTE | 2017-05-10 20:00 | NUR ---
RN NOTES PATIENT TEACHING RENDERED REGARDING SMOKING CESSATION. PATIENT REFUSES TO LISTEN, STATING "I CAN SMOKE AND DO WHATEVER I WANT. YOU ARE NOT THE BOSS OF ME." PATIENT SIGNED INFORMED CONSENT FOR SMOKING, WITNESSED BY MYSELF. WILL CONTINUE TO MONITOR AND REINFORCE TEACHING PATIENT PERMITS
--- NOTE | 2017-05-10 20:06 | NUR ---
RN NOTES SPOKE TO XOCHITL SUNSHINE, PROVIDER MADE AWARE THAT THE PATIENT LEFT TO GO SMOKE OUTSIDE. OBTAINED ORDER FOR NICOTINE PATCH 21MG DAILY AND 1:1 SITTER. WILL CONTINUE TO CLOSELY MONITOR THE PATIENT
[2017-05-10] MEDS: NICOTINE PATCH (21MG) 21 MG PATCH.TD24 TD SCH (20:30)
[2017-05-10] MEDS: ATORVASTATIN 10 MG TABLET PO SCH (21:29)
[2017-05-10] MEDS: ARIPIPRAZOLE 5 MG TABLET PO SCH (21:30)
[2017-05-10] MEDS: BENZTROPINE MESYLATE (1 MG) 1 MG TABLET PO SCH (21:30)
[2017-05-11] VITALS: BP 109/54
--- NOTE | 2017-05-11 | NUR ---
RN NOTES PATIENT DEMANDING FOR LASIX 20MG PO. MED ADMINISTRATION SCHEDULE CHECKED, PATIENT SCHEDULED FOR LASIX PO BID, MEDICATION ADMINISTERED BY THE DAY SHIFT NURSE. PATIENT STATES "SHE NEVER GAVE ME ANYTHING. SHE'S LYING, THE COMPUTER IS LYING." BLOOD PRESSURE RECHECKED, 109/54. SPOKE TO DR STREET REGARDING THE CURRENT SITUATION AND PATIENT'S LATEST DEMANDS. PER DR STREET, CONTINUE CURRENT MEDICATION ADMINISTRATION TIMES, NO ADDITIONAL DOSE OF LASIX AT THIS TIME. 1:1 SITTER AT BEDSIDE FOR SAFETY
[2017-05-11] MEDS: HYDROMORPHONE INJ 2 MG/ML DISP.SYRIN IV PRN ×7 (00:35→13:25)
[2017-05-11] MEDS: GABAPENTIN 100 MG CAPSULE PO SCH ×2 (05:00→12:16)
--- NOTE | 2017-05-11 07:15 | NUR ---
RN CLOSING NOTES PATIENT RESTING IN BED AT THIS TIME, DILAUDID 2MG IVP ADMINISTERED. PATIENT ENDORSED TO THE AM SHIFT NURSE FOR SONIDO
--- NOTE | 2017-05-11 07:32 | NUR ---
RN INITIAL NOTE PT PACING HALLWAY SITTER NEXT TO PT. SMOKING CESSATION EDUCATION GIVEN. WILL CONTINUE TO MONITOR PT CLOSELY. REPORT RECEIVED FROM SEJAL PM SHIFT NURSE.
[2017-05-11 08:00] VITALS: BP 102/68
[2017-05-11] MEDS: CARVEDILOL 3.125 MG TABLET PO SCH (09:00)
[2017-05-11 09:03] VITALS: BP 102/68
[2017-05-11] MEDS: FUROSEMIDE 20 MG TABLET PO SCH (09:03)
[2017-05-11] MEDS: ASPIRIN 81 MG TAB.CHEW PO SCH (09:03)
[2017-05-11] MEDS: DOCUSATE SODIUM 100 MG CAPSULE PO SCH (09:03)
[2017-05-11] MEDS: CHOLECALCIFEROL 1,000 UNIT TABLET (VIT D3) PO SCH (09:03)
[2017-05-11] MEDS: BENAZEPRIL HCL 10 MG TABLET PO SCH (09:03)
[2017-05-11] MEDS: FAMOTIDINE (20 MG) 20 MG TABLET PO SCH (09:04)
[2017-05-11] MEDS: LamoTRIgine 25 MG TABLET PO SCH (09:04)
[2017-05-11] MEDS: Z GUARD REMEDY 2 OZ OINT TP SCH (09:05)
[2017-05-11] MEDS: CLOPIDOGREL BISULFATE 75 MG TABLET PO SCH (09:13)
[2017-05-11] MEDS: SERTRALINE HCL 25 MG TABLET PO SCH (09:13)
[2017-05-11] MEDS: NICOTINE PATCH (21MG) 21 MG PATCH.TD24 TD SCH (09:14)
[2017-05-11 12:28] LABS: BASOPHILS % (AUTO) 0.2 % (0.0-2.0); EOSINOPHILS # (AUTO) 0.2 /CMM (0.0-0.7); EOSINOPHILS % (AUTO) 1.8 % (0.0-6.0); HEMATOCRIT 32 % (39-51); HEMOGLOBIN 10.9 g/dL (13.5-17.5); LYMPHOCYTES # (AUTO) 1.1 /CMM (0.8-4.8); LYMPHOCYTES % (AUTO) 8.7 % (20.0-44.0); MEAN CORPUSCULAR HEMOGLOBIN 29 PG (26.0-33.0); MEAN CORPUSCULAR HGB CONC 34 g/dl (31.0-36.0); MEAN CORPUSCULAR VOLUME 86 fL (80-96); MONOCYTES # (AUTO) 0.7 /CMM (0.1-1.30); MONOCYTES % (AUTO) 5.5 % (2.0-12.0); NEUTROPHILS # (AUTO) 10.3 /CMM (1.8-8.9); NEUTROPHILS % (AUTO) 83.8 % (43.0-81.0); PLATELET COUNT (AUTO) 347 /CMM (150-450); RDW COEFFICIENT OF VARIATION 16.4 (11.5-15.0); RED BLOOD CELL COUNT(AUTO) 3.75 MIL/uL (4.5-6.0); WHITE BLOOD COUNT (AUTO) 12.3 K/uL (4.3-11.0)
--- NOTE | 2017-05-11 15:23 | NUR ---
EXCEL EXPERT NOTE PT DC TO [facility]. REPORT CALLED AND GIVEN TO ABBIE @ 4697. PT STABLE DC INSTRUCTIONS GIVEN TO EMT. EXIT CARE DONE. PT CLEAN AND DRY. BELONGINGS LIST SIGNED. PICC LINE REMOVED. ID BAND REMOVED. ALL ORDERS CARRIED OUT. SMOKING CESSATION EDUCATION PROVIDED. PT TRANSFERRED VIA AMBULANCE.
== END 2017-05-11 15:22 | DRG 350 ==
LOC: ER 09:45 → MEDSG1 11:26 → ICU 05-07 16:36 → MEDSG1 05-10 15:35
PROVIDERS: ADMIT Internal Medicine; ATTEND Internal Medicine
PROC: 0YQ64ZZ Repair Left Inguinal Region, Percutaneous Endoscopic Approach (ICD-10-PCS; 2017-05-07)
PROC: 02HV33Z Insertion of Infusion Device into Superior Vena Cava, Percutaneous Approach (ICD-10-PCS; 2017-05-07)
PROC: 0VB70ZZ Excision of Left Tunica Vaginalis, Open Approach (ICD-10-PCS; principal; 2017-05-07 12:00)
DX: K40.90 Unilateral inguinal hernia, without obstruction or gangrene, not specified as recurrent (principal); J96.01 Acute respiratory failure with hypoxia; I21.4 Non-ST elevation (NSTEMI) myocardial infarction; J81.0 Acute pulmonary edema; I50.23 Acute on chronic systolic (congestive) heart failure; I50.22 Chronic systolic (congestive) heart failure; I13.0 Hypertensive heart and chronic kidney disease with heart failure and stage 1 through stage 4 chronic kidney disease, or unspecified chronic kidney disease; N17.9 Acute kidney failure, unspecified; I25.10 Atherosclerotic heart disease of native coronary artery without angina pectoris; I25.5 Ischemic cardiomyopathy; I48.91 Unspecified atrial fibrillation; J44.9 Chronic obstructive pulmonary disease, unspecified; Z88.8 Allergy status to other drugs, medicaments and biological substances; Z79.899 Other long term (current) drug therapy; F41.9 Anxiety disorder, unspecified; M19.90 Unspecified osteoarthritis, unspecified site; E55.9 Vitamin D deficiency, unspecified; F32.9 Major depressive disorder, single episode, unspecified; I70.0 Atherosclerosis of aorta; N18.2 Chronic kidney disease, stage 2 (mild); Z79.82 Long term (current) use of aspirin; Z79.891 Long term (current) use of opiate analgesic; Z79.02 Long term (current) use of antithrombotics/antiplatelets; Z95.810 Presence of automatic (implantable) cardiac defibrillator; Z95.5 Presence of coronary angioplasty implant and graft; Z91.19 Patient's noncompliance with other medical treatment and regimen; Z82.49 Family history of ischemic heart disease and other diseases of the circulatory system; Z98.890 Other specified postprocedural states; N43.3 Hydrocele, unspecified; Z72.0 Tobacco use
CPT/HCPCS: 31720; 36415; 36569; 36600; 71010-TC; 80048-TC; 80053-TC; 82728-TC; 82803-TC; 83540-TC; 83735-TC; 84100-TC; 84439-TC; 84443-TC; 84484-TC; 85025-TC; 85730-TC; 87081-TC; 93307-TC; 94002-TC; 94003-TC; 94799-TC; A4216; A4606; A6402; C1751; J0330; J1100; J1170; J1940; J2250; J2310; J2405; J3010; J3490; J7060; Z7610

== ENCOUNTER 2017-09-29 19:40 | Inpatient (IN) | payer MEDICARE, OTHER ==
[~2017-09-29] VITALS: Ht 180.3 cm; Wt 77.1 kg
[~2017-09-29 19:40] MED LIST changes: +ACET-868 PO; +ALBU18HF2 IH; +ARIP5TAB10 PO; +ATOR10TA PO; -ATOR40TA PO; +BENZ1TAB7 PO; +BISA10SU8 RC; -Benazepril Hcl PO; +CARV3.122 PO; -CARV6.252 PO; +CHOL100044 PO; -CLOP75TA2 PO; +DOCU-270 PO; +FAMO20TA8 PO; -FOLI1TAB16 PO; -FURO-145 PO; +FURO20TA4 PO; +GABA-532 PO; +HYDR-548 PO; +HYDR-552 PO; +HYDR4TAB4 PO; -IPRA3AMP IH; -Isosorbide Mononitrate PO; +LAMO25TA5 PEG; +MAGN400O6 PO; +POTA10TA15 PO; +SERT25TA PO; +SPIR25TA PO
--- NOTE | 2017-09-29 19:40 | NUR ---
PT BIBA SELF FROM HOME, PT C/O MIDSTERNAL CP WITH SOB X 1 DAY. NO SOB CURRENTLY BUT CHEST PAIN 9/10 NONRADIATING MIDDLE OF CHEST. VSS NAD. EXTENSIVE CARDIAC HISTORY AND CAME VERY WORRIED. A/OX4 ABLE TO MAKE NEEDS KNOWN. WILL CONTINUE TO MONITOR FOR ANY CHANGES DURING THE SHIFT.
[2017-09-29 20:18] LABS: BASOPHILS # (AUTO) 0.2 /CMM (0.0-0.2); BASOPHILS % (AUTO) 2.3 % (0.0-2.0); EOSINOPHILS % (AUTO) 5.2 % (0.0-6.0); HEMATOCRIT 30 % (39-51); HEMOGLOBIN 10.2 g/dL (13.5-17.5); LYMPHOCYTES # (AUTO) 1.3 /CMM (0.8-4.8); LYMPHOCYTES % (AUTO) 14.5 % (20.0-44.0); MEAN CORPUSCULAR HGB CONC 34 g/dl (31.0-36.0); MEAN CORPUSCULAR VOLUME 82 fL (80-96); MONOCYTES # (AUTO) 0.5 /CMM (0.1-1.30); MONOCYTES % (AUTO) 5.4 % (2.0-12.0); NEUTROPHILS # (AUTO) 6.5 /CMM (1.8-8.9); NEUTROPHILS % (AUTO) 72.6 % (43.0-81.0); PLATELET COUNT (AUTO) 276 /CMM (150-450); RDW COEFFICIENT OF VARIATION 17.3 (11.5-15.0)
[2017-09-29 20:30] LABS: CALCIUM, SERUM 9.3 mg/dL (8.5-10.1); CREATININE 1.3 mg/dL (0.6-1.3); POTASSIUM 4.2 mmol/L (3.5-5.1)
[2017-09-29 20:32] LABS: INR 0.94 (0.85-1.15)
--- NOTE | 2017-09-29 20:35 | NUR ---
ER AT BEDSIDE
[2017-09-29 20:37] LABS: TROPONIN I 0.031 ng/mL (0.00-0.056)
--- NOTE | 2017-09-29 20:40 | NUR ---
PT REQUSTING PAIN MEDICATION
[2017-09-29 20:42] LABS: ALBUMIN 3.6 g/dL (3.4-5.0); BILIRUBIN,DIRECT 0.2 mg/dL (0.0-0.2); BILIRUBIN,TOTAL 0.4 mg/dL (0.2-1.0); TOTAL PROTEIN, SERUM 8.2 g/dL (6.4-8.2)
[2017-09-29] MEDS ORDERED: CLOPIDOGREL BISULFATE 75 MG TABLET ONE (20:49)
[2017-09-29] MEDS ORDERED: IPRATROPIUM NEB FS 0.5 MG/2.5 ML AMPUL.NEB NEB ONE (21:00)
[2017-09-29] MEDS ORDERED: IV NS 0.9% 500 ML BAG IV ONE (21:00)
[2017-09-29] MEDS ORDERED: ALBUTEROL FS 2.5 MG/3 ML VIAL.NEB NEB ONE (21:00)
[2017-09-29] MEDS ORDERED: CLOPIDOGREL BISULFATE 75 MG TABLET PO ONE (21:00)
[2017-09-29] MEDS ORDERED: ASPIRIN 325 MG TABLET PO ONE (21:00)
[2017-09-29] MEDS ORDERED: IPRATROPIUM NEB FS 0.5 MG/2.5 ML AMPUL.NEB ONE (21:19)
[2017-09-29] MEDS ORDERED: ALBUTEROL FS 2.5 MG/3 ML VIAL.NEB ONE (21:19)
--- NOTE | 2017-09-29 21:25 | NUR ---
PT IS ASSIGNED TO [facility]#: [id number]
--- NOTE | 2017-09-29 21:31 | NUR ---
BREATHING TX IN PROCESS NOW. ADMIN BY RT
--- NOTE | 2017-09-29 21:37 | NUR ---
REPORT GIVEN TO ELLEN
--- NOTE | 2017-09-29 22:45 | NUR ---
RIVET STICKER ADMITTING NOTES PATIENT BROUGHT INTO UNIT VIA RNEY, ACCOMPANIED BY ER STAFF. PT ABLE TO AMBULATE WITH CANE SAFELY FROM GURNEY TO BED, NO SOB NOTED AND IN NO ACUTE DISTRESS. ORIENTED PT TO UNIT, ROOM, ADMISSION PROCESS, CALL LIGHT, USE OF CALL LIGHT, PT VERBALIZED UNDERSTANDING. ALL PATIENT'S NEEDS ATTENDED T OAT THIS TIME. KEPT PT SAFE AND DRY, CLEAN AND COMFORTABLE. WILL CONTINUE TO MONITOR PT.
[2017-09-29 22:50] VITALS: BP 111/64
--- NOTE | 2017-09-29 23:50 | NUR ---
RN NOTES PAGED KASIA ANAND, RECEIVED ADMISSION ORDERS. ALL ORDERS NOTED AND CARRIED OUT. PT UNDER TELEMETRY MONITORING SR @ 90 BPM. WILL CONTINUE TO MONITOR.
[2017-09-30] VITALS: BP 94/56
[2017-09-30] MEDS: MORPHINE SULFATE INJ 4 MG/ML DISP.SYRIN IV PRN ×6 (00:27→21:58)
--- NOTE | 2017-09-30 02:21 | NUR ---
PSYCHOTHERAPIST COUNSELOR ADMITTING NOTES PATIENT BROUGHT INTO UNIT VIA [id number], ACCOMPANIED BY ER STAFF. PT ABLE TO AMBULATE WITH CANE SAFELY FROM GURNEY TO BED, NO SOB NOTED AND IN NO ACUTE DISTRESS. ORIENTED PT TO UNIT, ROOM, ADMISSION PROCESS, CALL LIGHT, USE OF CALL LIGHT, PT VERBALIZED UNDERSTANDING. ALL PATIENT'S NEEDS ATTENDED T OAT THIS TIME. KEPT PT SAFE AND DRY, CLEAN AND COMFORTABLE. WILL CONTINUE TO MONITOR PT. Addendum: 09/30/17 at 0232 by ELLEN ANGELES RN WRONG DATE/TIME STAMP.
[2017-09-30] MEDS ORDERED: ALBU2.5V38 NEB (05:15)
--- NOTE | 2017-09-30 06:15 | NUR ---
RN NOTES PATIENT REQUESTING TO GO DOWN FOR A SMOKE. EDUCATED THE PATIENT FOR RISKS OF SMOKING. PATIENT CONTINUES TO INSIST ON GOING DOWN TO SMOKE. OBTAINED SMOKING CONSENT FORM AND PT WENT DOWN FOR A SMOKE ACCOMPANIED BY OXYGEN EQUIPMENT AIDE. AMBULATES SAFELY WITH CANE, IN STABLE CONDITION.
--- NOTE | 2017-09-30 06:30 | NUR ---
RN CLOSING NOTES PATIENT BACK FROM SMOKING, SITTING UP IN BED, IN STABLE CONDITION, IN NO ACUTE DISTRESS, NO SOB NOTED, BREATHING EVEN AND UNLABORED, DENIES PAIN AT THIS TIME. ALL PATIENT'S NEEDS ATTENDED TO. PLACED BED IN LOW POSITION AND LOCKED IN PLACE. PATIENT WITH IV LINE ON RFA G20, INTACT AND PATENT. WILL ENDORSE TO AM SHIFT FOR CONTINUITY OF CARE.
[2017-09-30] MEDS ORDERED: ANESTHESIA TRAY IN PYXIS 1 EA TRAY MC ONE (06:35)
[2017-09-30] MEDS ORDERED: FENTANYL PF 100MCG/2ML AMPUL ONE (07:05)
[2017-09-30 08:00] VITALS: BP 105/67
--- NOTE | 2017-09-30 08:00 | NUR ---
MS AYAZ OPENING NOTES Patient greeted us at nurses station this AM requesting breathing treatment, although upon observation respirations were even and nonlabored; patient was able to walk and carry on a conversation without difficulty. On auscultation patient had expiratory wheezing throughout lung martinez. Physician ordered albuterol nebulizer treatment. Patient also complains of chest heaviness; troponins and EKG negative. Patient is otherwise in no acute distress. He is AA&Ox4. Left forearm peripheral IV is patent. Vital signs are stable. Will continue to monitor.
[2017-09-30] MEDS: ALBUTEROL FS 2.5 MG/0.5 ML VIAL.NEB NEB SCH ×5 (09:00→23:56)
[2017-09-30 09:59] LABS: ABG BASE EXCESS -2.9 mmol/L; ABG OXYGEN SATURATION 93.2 % (92.0-98.5); ABG PCO2 34.8 mmHg (35.0-45.0); ABG PH 7.404 (7.350-7.450); ABG PO2 73.7 mmHg (75.0-100.0); AaDO2 34.4 mmHg; COHb 0.8 % (0.5-1.5); MetHb 0.5 % (0.0-1.5); SITE, ABG Right Radial; VENT MODE, BG room air
[2017-09-30] MEDS ORDERED: ACETAMINOPHEN 325 MG TABLET PO PRN (10:30)
[2017-09-30] MEDS ORDERED: ALBUTEROL SULFATE 8 GM HFA.AER.AD IH PRN (10:30)
[2017-09-30] MEDS ORDERED: MAGNESIUM HYDROXIDE 30 ML UDC PO PRN (10:30)
[2017-09-30] MEDS ORDERED: BISACODYL SUPP (10 MG) 10 MG/SUPP.RECT SUPP.RECT RC PRN (10:30)
[2017-09-30] MEDS ORDERED: ALBUTEROL FS 2.5 MG/3 ML VIAL.NEB NEB PRN (10:30)
[2017-09-30] MEDS: SPIRONOLACTONE 25 MG TABLET PO SCH (12:54)
[2017-09-30] MEDS: GABAPENTIN 100 MG CAPSULE PO SCH ×2 (12:55→21:21)
--- NOTE | 2017-09-30 13:00 | NUR ---
MS RN NOTES Patient was anxious about going outside to smoke a cigarette; he was accompanied by RN to smoke outdoors. Patient signed "Smoking Waiver" form upon admission. Patient continues to complain of chest discomfort, which is relieved by prn morphine as ordered. Patient is otherwise stable and in no distress. Will continue to monitor.
[2017-09-30 16:00] VITALS: BP 112/77
[2017-09-30] MEDS: LamoTRIgine 25 MG TABLET PO SCH (17:02)
--- NOTE | 2017-09-30 18:54 | NUR ---
MS RN CLOSING NOTES Patient is sitting up comfortably in bed AA&Ox4 with no S/S of acute distress. Vital signs WNL this shift. Patient ambulated frequently with cane throughout this shift. Primary complaint by patient has been chest pain, which has been controlled with distraction and prn morphine. Troponins and EKG were negative. Patient seen this afternoon by Dr. Goodson. Patient is also followed by Acid Concentrator as outpatient. All prescribed treatments and patient needs carried out. egg grader nurse will continue care.
--- NOTE | 2017-09-30 19:15 | NUR ---
MS/CONSTRUCTION TRADES CONTRACTOR; RECEIVED PT'S REPORTS FROM THE DAY SHIFT RN FOR CONTINUITY OF. CARE. AT THIS TIME IN HIS ROOM WALKING NEAR HIS BED. BREATHING NON LABORED. HL INTACT. BED ON LOWER POSITION AND LOCKED FOR SAFETY. SIDE RAILS X2 ARE UP FOR SAFETY. CALL LIGHT WITHIN REACH. WILL CONTINUE TO MONITOR.
[2017-09-30 20:00] VITALS: BP 103/67
--- NOTE | 2017-09-30 20:25 | NUR ---
MS/RESERVATIONS SALES AGENT; RT BOLIVAR INFORMED PT WANTS BREATHING TREATMENT AND HE I WILL BE THERE.
[2017-09-30] MEDS: CARVEDILOL 3.125 MG TABLET PO SCH (21:00)
--- NOTE | 2017-09-30 21:00 | NUR ---
MS/GAS DESULFURIZER; PT WANTS TO SMOKE AND WENT DOWN TO SMOKE ACCOMPANIED BY THE OIL AND GAS PRINCIPAL.
[2017-09-30] MEDS: FAMOTIDINE (20 MG) 20 MG TABLET PO SCH (21:21)
--- NOTE | 2017-09-30 21:50 | NUR ---
MS/MIDDLE SCHOOL BAND TEACHER; PT C/O CHEST PAIN AND WANTS PAIN SHOT. BP 143/ 96 WA 107 , O2 SAT ON RA 92 % . I INFORMED MY RN WHO IS COVERING MY IV MED PT WANTS PAIN SHOT.
[2017-09-30] MEDS: ARIPIPRAZOLE 5 MG TABLET PO SCH (22:08)
[2017-09-30] MEDS: BENZTROPINE MESYLATE (1 MG) 1 MG TABLET PO SCH (22:09)
[2017-09-30] MEDS: ATORVASTATIN 10 MG TABLET PO SCH (22:10)
--- NOTE | 2017-10-01 00:40 | NUR ---
MS/UNDERCAR SPECIALIST; PT'S REPORTS ENDORSED TO THE RN, FOR CONTINUITY OF CARE.
--- NOTE | 2017-10-01 00:45 | NUR ---
RN NOTES RECEIVE PT IN BED FROM THE [facility] NIGHTSHIFT A/O X 4, NO S/S OF DISTRESS, STABLE, SAFETY MEASURES IN PLACE, CALL LIGHT WITHIN REACH, WILL CONTINUE TO MONITOR
[2017-10-01] MEDS: MORPHINE SULFATE INJ 4 MG/ML DISP.SYRIN IV PRN ×5 (02:52→20:27)
[2017-10-01] MEDS: ALBUTEROL FS 2.5 MG/0.5 ML VIAL.NEB NEB SCH ×6 (03:41→23:29)
[2017-10-01] MEDS: GABAPENTIN 100 MG CAPSULE PO SCH ×3 (05:03→21:00)
--- NOTE | 2017-10-01 06:29 | NUR ---
MS RN NOTES PT ASLEEP COMFORTABLY IN BED AND EASILY AWAKEN HEAD OF BED ELEVATED FOR BETTER LUNG EXPANSION AND GOOD CIRCULATION. TOLERATING ROOM AIR 98% NOT IN RESPIRATORY DISTRESS. STABLE CONDITION. NO ACUTE CHANGES THROUGHOUT THE SHIFT. PT KEPT CLEAN AND DRY AND COMFORT. NURSING CARE RENDERED. NEEDS ATTENDED AND ANTICIPATED. ON LOW BED TO ENSURE SAFETY, CALL LIGHT WITHIN REACH, WILL ENDORSE TO THE NEXT SHIFT CONTINUE PLAN OF CARE
--- NOTE | 2017-10-01 07:30 | NUR ---
MS RN OPENING NOTES RECEIVED PATIENT IN STABLE CONDITION. IN NO APPARENT DISTRESS. BEDSIDE RAILS ARE UPX2. BED IS LOCKED AND LOWERED. CALL LIGHT IS WITHIN REACH. PATIENT IS RESTING IN BED COMFORTABLY. WILL CONTINUE TO MONITOR.
[2017-10-01 08:00] VITALS: BP 137/80
[2017-10-01] MEDS: CLOPIDOGREL BISULFATE 75 MG TABLET PO SCH (08:05)
[2017-10-01] MEDS: CARVEDILOL 3.125 MG TABLET PO SCH ×2 (08:08→20:34)
[2017-10-01] MEDS: LamoTRIgine 25 MG TABLET PO SCH ×2 (08:09→16:18)
[2017-10-01] MEDS: POTASSIUM CHLORIDE 10 MEQ TABLET.SA PO SCH (08:09)
[2017-10-01] MEDS: ASPIRIN EC 81 MG TABLET.DR PO SCH (08:09)
[2017-10-01] MEDS: CHOLECALCIFEROL 1,000 UNIT TABLET (VIT D3) PO SCH (08:10)
[2017-10-01] MEDS: FAMOTIDINE (20 MG) 20 MG TABLET PO SCH ×2 (08:10→21:11)
[2017-10-01] MEDS: SERTRALINE HCL 25 MG TABLET PO SCH (08:10)
[2017-10-01] MEDS: BENAZEPRIL HCL 10 MG TABLET PO SCH (08:10)
[2017-10-01] MEDS: FUROSEMIDE 20 MG TABLET PO SCH ×2 (09:00→21:17)
[2017-10-01] MEDS ORDERED: FUROSEMIDE 20 MG TABLET PO ONE (09:00)
[2017-10-01] MEDS ORDERED: FUROSEMIDE 20 MG TABLET PO SCH (09:00)
[2017-10-01] MEDS ORDERED: DOCUSATE SODIUM 100 MG CAPSULE PO SCH (09:00)
--- NOTE | 2017-10-01 10:00 | NUR ---
ADMINISTERED 40MG LASIX. PATIENT REFUSED TO TAKE 60MG.
[2017-10-01] MEDS: SPIRONOLACTONE 25 MG TABLET PO SCH (12:00)
[2017-10-01 16:00] VITALS: BP 122/82
[2017-10-01] MEDS: LORAZEPAM 1 MG TABLET PO PRN (18:01)
--- NOTE | 2017-10-01 18:27 | NUR ---
MS RN CLOSING NOTES PATIENT IS RESTING IN NO APPARENT DISTRESS. BEDSIDE RAILS ARE UPX2. BED IS LOCKED AND LOWERED. CALL LIGHT IS WITHIN REACH. ALL NEEDS WERE MET. IV LINE IS PATENT AND INTACT. WILL ENDORSE CARE TO DIRECTOR OF GUIDANCE IN [employer] NURSE FOR SONIDO.
[2017-10-01 20:00] VITALS: BP 112/78
--- NOTE | 2017-10-01 20:00 | NUR ---
MS/RN OPENING NOTES PATIENT OBSERVE WALKING WITH CANE, ABLE TO VERBALIZE NEEDS, AMBULATES TO BATHROOM AND HALLWAY WITH SUPERVISION, REQUIRE FREQUENT REORIENNTATION, REPORTED PAIN ROUTINE FOR CONSTANT PAIN ON MID STERNUM, ABLE TO EAT INDEPENDENTLY AND ASK TO BE ASSISTED TO GO TO SMOKE, EDUCATED WITH SMOKING RISK, REFUSED TO HAVE SMOKING CESSATION, WILL MONITOR AND PROVIDE CARE, CALL LIGHTS WITHIN REACH, BED IN LOCK POSITION, WILL MONITOR FOR SAFETY.
--- NOTE | 2017-10-01 20:00 | NUR ---
MS/RN NOTES PATIENT IN BED, SITTING IN BED, AWAKE, ALERT X3, ABLE TO VERBALIZE NEEDS, RESTING COMFORTABLY IN BED, RECEIVED ENDORSEMENT FROM AM RN BED IN LOCK POSITION.CALL LIGHTS WITHIN REACH, MONITORING FOR ANY S/S HYPO/HYPERTENSION, BED IN LOCK POSITION. WILL CONTINUE TO MONITOR.
[2017-10-01] MEDS: ARIPIPRAZOLE 5 MG TABLET PO SCH (21:16)
[2017-10-01] MEDS: BENZTROPINE MESYLATE (1 MG) 1 MG TABLET PO SCH (21:16)
[2017-10-01] MEDS: ATORVASTATIN 10 MG TABLET PO SCH (21:29)
[2017-10-02] MEDS: ALBUTEROL FS 2.5 MG/0.5 ML VIAL.NEB NEB SCH ×6 (03:40→23:01)
[2017-10-02] MEDS: MORPHINE SULFATE INJ 4 MG/ML DISP.SYRIN IV PRN ×5 (04:16→20:53)
[2017-10-02] MEDS: GABAPENTIN 100 MG CAPSULE PO SCH ×2 (04:17→12:43)
--- NOTE | 2017-10-02 06:51 | NUR ---
314-2MS/RN NOTE PATIENT ABLE TO SLEEP DURING THE NIGHT, ON PAIN MANAGMENT MONITORING, NORPHINE IVP GIVEN REPORTED PAIN, CALL LIGHTS WITHIN REACH, AMBULATES WITH WALKER, WILL EMDORSE TO AM RN FOR SONIDO, BED IN LOCK POSITION, IV ON LEF FOREARM PATENT.
--- NOTE | 2017-10-02 07:15 | NUR ---
MS/RN OPENING NOTE PATIENT ALERT AND ORIENTED X4. DENIES SOB, PAIN AT THIS TIME. BREATHING REGULAR AND UNLABORED. PATIENT IN NO APPARENT DISTRESS. AMBULATES WITH A CANE. LFA G 20 PATENT. BED LOW AND LOCKED. SIDE RAILS UP X2. CALL LIGHT WITHIN REACH. WILL CONTINUE TO MONITOR.
[2017-10-02 08:00] VITALS: BP 128/80
[2017-10-02] MEDS: FUROSEMIDE 20 MG TABLET PO SCH ×2 (08:29→22:00)
[2017-10-02] MEDS: POTASSIUM CHLORIDE 10 MEQ TABLET.SA PO SCH (08:29)
[2017-10-02] MEDS: CHOLECALCIFEROL 1,000 UNIT TABLET (VIT D3) PO SCH (08:30)
[2017-10-02] MEDS: CLOPIDOGREL BISULFATE 75 MG TABLET PO SCH (08:30)
[2017-10-02] MEDS: FAMOTIDINE (20 MG) 20 MG TABLET PO SCH ×2 (08:30→21:50)
[2017-10-02] MEDS: SERTRALINE HCL 25 MG TABLET PO SCH (08:31)
[2017-10-02] MEDS: ASPIRIN EC 81 MG TABLET.DR PO SCH (08:32)
[2017-10-02] MEDS: CARVEDILOL 3.125 MG TABLET PO SCH ×2 (08:33→21:00)
[2017-10-02] MEDS: LamoTRIgine 25 MG TABLET PO SCH ×2 (08:36→16:37)
[2017-10-02] MEDS: BENAZEPRIL HCL 10 MG TABLET PO SCH (08:37)
[2017-10-02] MEDS: SPIRONOLACTONE 25 MG TABLET PO SCH (12:39)
[2017-10-02] MEDS: LORAZEPAM 1 MG TABLET PO PRN ×2 (14:53→22:30)
[2017-10-02 15:00] VITALS: BP 110/73
[2017-10-02 16:00] VITALS: BP 109/77
--- NOTE | 2017-10-02 18:27 | NUR ---
MS/RN CLOSING NOTE PATIENT ALERT AND ORIENTED X4. DENIES SOB AT THIS TIME. RESPIRATION REGULAR AND UNLABORED. DENIES PAIN AT THIS TIME. PATIENT IN NO APPARENT DISTRESS. PATIENT TALKATIVE AND INVOLVED IN HIS CARE. CONTINENT ON BOWEL AND BLADDER. AMBULATES WITH A CANE. VERBAL CUES ARE PROVIDED TO KEEP SAFETY AWARENESS HIGH. LFA G 20 PATENT AND SALINE LOCKED. BED LOW AND LOCKED. SIDE RAILS UP X2. CALL LIGHT WITHIN REACH. WILL ENDORSE TO WING COVERER.
--- NOTE | 2017-10-02 19:40 | NUR ---
MS RN OPENING NOTES RECEIVED PT IN BED, ALERT, AWAKE, VERBALLY RESPONSIVE, IN ROOM AIR, RESPIRATIONS EVEN, UNLABORED NO APPARENT DISTRESS NOTED. DENIES ANY PAIN OR DISCOMFORT AT THIS TIME. IV SITE LT FA INTACT, PATENT. CALL LIGHT WITHIN REACH. BED LOCKED IN LOWEST POSITION. ATTENDED ALL NEEDS. WILL CONTINUE TO MONITOR ACCORDINGLY.
[2017-10-02 20:00] VITALS: BP 103/71
--- NOTE | 2017-10-02 21:20 | NUR ---
MS RN NOTE COREG 3.125MG HELD BP 98/64, WILL CONTINUE TO MONITOR ACCORDINGLY.
[2017-10-02] MEDS: ARIPIPRAZOLE 5 MG TABLET PO SCH (21:50)
[2017-10-02] MEDS: ATORVASTATIN 10 MG TABLET PO SCH (21:50)
[2017-10-02] MEDS: BENZTROPINE MESYLATE (1 MG) 1 MG TABLET PO SCH (21:51)
[2017-10-02 22:00] VITALS: BP 98/64
--- NOTE | 2017-10-02 22:00 | NUR ---
MS RN NOTE LASIX 20MG HELD BP 92/60. DENIES ANY PAIN OR DISCOMFORT AT THIS TIME. WILL MONITOR..
[2017-10-03] MEDS: MORPHINE SULFATE INJ 4 MG/ML DISP.SYRIN IV PRN ×5 (01:30→21:08)
[2017-10-03] MEDS: ALBUTEROL FS 2.5 MG/0.5 ML VIAL.NEB NEB SCH ×6 (02:45→23:35)
--- NOTE | 2017-10-03 06:28 | NUR ---
MS RN CLOSING NOTES PT IN BED ASLEEP, ON ROOM AIR NO APPARENT DISTRESS NOTED. NO S/SX OF PAIN OR DISCOMFORT AT THIS TIME IV SIE LFA INTACT, PATENT. KEPT CLEAN AND COMGFORTABLE. ATTENDED ALL NEEDS. WILL ENDORSE TO THE DAY SHIFT FOR CONTINUITY OF CARE
--- NOTE | 2017-10-03 07:20 | NUR ---
RN OPENING NOTES RECEIVED PT. IN BED A&OX4. BREATHING UNLABORED ON ROOM AIR. PT. DENIES PAIN. NO S/S OF ACUTE DISTRESS. BED IS IN LOWEST, AND LOCKED POSITION. AND INSTRUCTED PT. TO USE CALL LIGHT FOR ASSISTANCE. ALL NEEDS MET. WILL CONTINUE TO ASSESS AND MONITOR.
[2017-10-03 08:00] VITALS: BP 108/81
--- NOTE | 2017-10-03 08:00 | NUR ---
RN NOTES PT. C/O LEFT HAND WEAKNESS, AND NUMBNESS. ASSESSED LEFT HAND. PT. IS ABLE TO LIFT ARM BUT UNABLE TO MOVE HIS WRIST, WITH VERY POOR HAND CROCHETER, AND MINIMAL MOVEMENT IN FINGERS. PT. DENIES LOSS OF SENSATION IN FINGERS, AND PALM. PT. DENIES PAIN IN LEFT HAND. AND REPORTED THAT HE WAS HAVING ARTHRITIC PAIN YESTERDAY SO HE APPLIED A BANDAGE FOR SUPPORT AROUND HIS LEFT WRIST THEN WOKE UP THIS MORNING WITH SEVERE LEFT HAND WEAKNESS, AND THINKS IT WAS CAUSED BY THE BANDAGE HE WAS WEARING OVER NIGHT. WILL FOLLOW UP WITH .
[2017-10-03] MEDS: POTASSIUM CHLORIDE 10 MEQ TABLET.SA PO SCH (08:21)
[2017-10-03] MEDS: CLOPIDOGREL BISULFATE 75 MG TABLET PO SCH (08:21)
[2017-10-03] MEDS: ASPIRIN EC 81 MG TABLET.DR PO SCH (08:21)
[2017-10-03] MEDS: FAMOTIDINE (20 MG) 20 MG TABLET PO SCH ×2 (08:21→21:05)
[2017-10-03] MEDS: CHOLECALCIFEROL 1,000 UNIT TABLET (VIT D3) PO SCH (08:22)
[2017-10-03] MEDS: BENAZEPRIL HCL 10 MG TABLET PO SCH (08:22)
[2017-10-03] MEDS: FUROSEMIDE 20 MG TABLET PO SCH ×2 (08:22→21:06)
[2017-10-03] MEDS: SERTRALINE HCL 25 MG TABLET PO SCH (08:22)
[2017-10-03] MEDS: CARVEDILOL 3.125 MG TABLET PO SCH ×2 (08:23→21:06)
[2017-10-03] MEDS: SPIRONOLACTONE 25 MG TABLET PO SCH (12:19)
--- NOTE | 2017-10-03 14:00 | NUR ---
RN NOTES PT. WAS SEEN AND EXAMINED BY DR. STREET. NEW ORDERS WERE GIVEN FOR A CTA OF THE LEFT CORTAID ANTERIOR CIRCULATION FOR SUDDEN ONSET OF WEAKNESS OF LEFT WRIST AND TO RULE OUT CLOT. PT. SIGNED CONSENT FORM FOR PROCEDURE, AND WAS PLACED IN CHART.
[2017-10-03 16:00] VITALS: BP 99/64
[2017-10-03] MEDS ORDERED: IOHEXOL-350 100 ML VIAL IV ONE (16:30)
[2017-10-03] MEDS ORDERED: CT SWABBABLE VALVE TRANS SET 1 EA INFUS.SET MC ONE (16:31)
--- NOTE | 2017-10-03 17:00 | NUR ---
RN NOTES PT. RETURNED BACK TO THE SAME ROOM AFTER CTA TEST.
--- NOTE | 2017-10-03 18:59 | NUR ---
RN CLOSING NOTES PT. IS SITTING UP IN CHAIR A&OX4. BREATHING UNLABORED ON ROOM AIR. NO S/S OF ACUTE DISTRESS. NEW IV ACCESS ON LEFT FOREARM IS INTACT AND PATENT. BED IS IN LOWEST, AND LOCKED POSITION. AND INSTRUCTED PT. TO USE CALL LIGHT FOR ASSISTANCE. ALL NEEDS MET. WILL ENDORSE REPORT TO NURSE.
--- NOTE | 2017-10-03 19:50 | NUR ---
MS RN OPENING NOTE RECEIVED PATIENT SITTING IN A CHAIR, RECEIVING BREATHING TREATMENT CURRENTLY, ALERT ORIENTED X4, IN NO APPARENT DISTRESS OR DISCOMFORT AT THIS TIME. RESPIRATIONS EVEN AND UNLABORED. PATIENT ON MED SURGE STATUS, AMBULATES INDEPENDENTLY BUT ENCOURAGED TO USE HIS CANE. L FA IV 20G, SL. PATENT AND INTACT, FLASHED WITH NS NO INFILTRATION OBSERVED. PATIENT COMPLAINS OF LEFT HAND NUMBNESS. UNABLE TO MOVE THE HAND BUT ABLE TO MOVE THE ELBOW AND ARM. CT WAS DONE RESULTS ARE STILL PENDING. SAFETY MEASURES PLACE, BED IN LOW LOCKED POSITION, SIDE RAILS UPX2, CALL LIGHT WITHIN EASY REACH, WILL CONTINUE TO MONITOR.
[2017-10-03 20:00] VITALS: BP 131/71
[2017-10-03] MEDS: ATORVASTATIN 10 MG TABLET PO SCH (21:06)
[2017-10-03] MEDS: BENZTROPINE MESYLATE (1 MG) 1 MG TABLET PO SCH (21:06)
[2017-10-03] MEDS: ARIPIPRAZOLE 5 MG TABLET PO SCH (21:06)
[2017-10-04] MEDS: MORPHINE SULFATE INJ 4 MG/ML DISP.SYRIN IV PRN ×3 (01:13→11:33)
[2017-10-04] MEDS: LORAZEPAM 1 MG TABLET PO PRN (02:47)
[2017-10-04] MEDS: ALBUTEROL FS 2.5 MG/0.5 ML VIAL.NEB NEB SCH ×3 (03:35→11:50)
--- NOTE | 2017-10-04 07:29 | NUR ---
MS RN CLOSING NOTE PATIENT SITTING IN A CHAIR, ALERT ORIENTED X4, IN NO APPARENT DISTRESS OR DISCOMFORT AT THIS TIME. RESPIRATIONS EVEN AND UNLABORED. PATIENT ON MED SURGE STATUS, AMBULATES INDEPENDENTLY BUT ENCOURAGED TO USE HIS CANE. L FA IV 20G, SL. PATENT AND INTACT, FLASHED WITH NS NO INFILTRATION OBSERVED. PATIENT WITH COMPLAINS OF LEFT HAND NUMBNESS AND FLACCIDITY, UNABLE TO MOVE THE HAND BUT ABLE TO MOVE THE ELBOW AND ARM. CT WAS DONE RESULTS ARE STILL PENDING. CURRENTLY REGAINED FINGER MOVEMENT THROUGHOUT THE SHIFT. ALL NEEDS ATTENDED, PATIENT KEPT CLEAN AND COMFORTABLE. SAFETY MEASURES PLACE, BED IN LOW LOCKED POSITION, SIDE RAILS UPX2, CALL LIGHT WITHIN EASY REACH, WILL ENDORSE TO AM NURSE FOR SONIDO.
[2017-10-04 08:00] VITALS: BP 107/69
[2017-10-04 09:00] VITALS: BP 102/60
[2017-10-04] MEDS: CARVEDILOL 3.125 MG TABLET PO SCH (09:00)
[2017-10-04] MEDS: BENAZEPRIL HCL 10 MG TABLET PO SCH (09:00)
[2017-10-04] MEDS: ASPIRIN EC 81 MG TABLET.DR PO SCH (09:16)
[2017-10-04] MEDS: CHOLECALCIFEROL 1,000 UNIT TABLET (VIT D3) PO SCH (09:20)
[2017-10-04] MEDS: POTASSIUM CHLORIDE 10 MEQ TABLET.SA PO SCH (09:20)
[2017-10-04] MEDS: CLOPIDOGREL BISULFATE 75 MG TABLET PO SCH (09:21)
[2017-10-04] MEDS: FUROSEMIDE 20 MG TABLET PO SCH (09:21)
[2017-10-04] MEDS: SERTRALINE HCL 25 MG TABLET PO SCH (09:22)
[2017-10-04] MEDS: FAMOTIDINE (20 MG) 20 MG TABLET PO SCH (09:22)
[2017-10-04] MEDS: SPIRONOLACTONE 25 MG TABLET PO SCH (11:31)
--- NOTE | 2017-10-04 15:55 | NUR ---
CLOUD OPERATIONS ENGINEER NOTES DISCHARGE PATIENT IN STABLE CONDITION PICKED UP BY BLOCKER AND POLISHER GOLD WHEEL. DISCHARGE PAPERWORK GIVEN, ALL BELONGINGS RETURNED. REPORT GIVEN TO AYAZ PIERCE FROM [facility], DISCHARGE INSTRUCTIONS GIVEN. IV SITE REMOVED, APPLIED PRESSURE, NO BLEEDING, NO COMPLICATIONS. NAME BAND REMOVED.
== END 2017-10-04 15:57 | DRG 303 ==
LOC: ER 19:44 → TELE 21:37 → MED 09-30 11:04
PROVIDERS: ADMIT Nurse Practitioner Primary Care; ATTEND Nurse Practitioner Primary Care
DX: I25.110 Atherosclerotic heart disease of native coronary artery with unstable angina pectoris (principal); I11.0 Hypertensive heart disease with heart failure; I50.22 Chronic systolic (congestive) heart failure; I48.91 Unspecified atrial fibrillation; J44.9 Chronic obstructive pulmonary disease, unspecified; E67.3 Hypervitaminosis D; D63.8 Anemia in other chronic diseases classified elsewhere; I25.5 Ischemic cardiomyopathy; Z95.810 Presence of automatic (implantable) cardiac defibrillator; Z95.5 Presence of coronary angioplasty implant and graft; Z79.899 Other long term (current) drug therapy; Z82.49 Family history of ischemic heart disease and other diseases of the circulatory system; I25.2 Old myocardial infarction; Z87.81 Personal history of (healed) traumatic fracture; F29 Unspecified psychosis not due to a substance or known physiological condition; Z88.8 Allergy status to other drugs, medicaments and biological substances; F32.9 Major depressive disorder, single episode, unspecified; M19.90 Unspecified osteoarthritis, unspecified site; Z96.651 Presence of right artificial knee joint; Z96.611 Presence of right artificial shoulder joint; Z98.890 Other specified postprocedural states; F10.10 Alcohol abuse, uncomplicated; G89.29 Other chronic pain; Z72.0 Tobacco use; I65.23 Occlusion and stenosis of bilateral carotid arteries
CPT/HCPCS: 36415; 36600; 70496-TC; 70498-TC; 71045-TC; 80048-TC; 80076-TC; 82550-TC; 82803-TC; 83880; 84484-TC; 85025-TC; 85730-TC; 87081-TC; 93307-TC; 94799-TC; A4606; J2270; J3010; J7040; Q9967; Z7610

== ENCOUNTER 2018-09-26 18:54 | Inpatient (IN) | payer MEDICARE, OTHER ==
[~2018-09-26] VITALS: Ht 177.8 cm; Wt 77.1 kg
[~2018-09-26 18:54] MED LIST changes: +ALBU2.5V38 NEB; -HYDR-548 PO; -HYDR-552 PO; -HYDR4TAB4 PO
--- NOTE | 2018-09-26 19:30 | NUR ---
pt bibself from home c/o midsternal chest pain that is nonradiating since 4pm today. Pt denies -N/-V. -Headache, -Dizziness. Pt c/o some SOB. Pt is a/ox3, verbal, able to make needs known. Pt already seen by . VS stable. Will continue to monitor pt's condition.
--- NOTE | 2018-09-26 19:35 | NUR ---
CXR BEING DONE AT BEDSIDE
[2018-09-26 19:50] LABS: BASOPHILS % (AUTO) 0.4 % (0.0-2.0); EOSINOPHILS % (AUTO) 0.6 % (0.0-6.0); HEMATOCRIT 45 % (39-51); HEMOGLOBIN 14.9 g/dL (13.5-17.5); LYMPHOCYTES # (AUTO) 0.6 /CMM (0.8-4.8); LYMPHOCYTES % (AUTO) 5.7 % (20.0-44.0); MEAN CORPUSCULAR HGB CONC 33 g/dl (31.0-36.0); MEAN CORPUSCULAR VOLUME 93 fL (80-96); MONOCYTES # (AUTO) 0.7 /CMM (0.1-1.30); MONOCYTES % (AUTO) 6.2 % (2.0-12.0); NEUTROPHILS # (AUTO) 9.4 /CMM (1.8-8.9); NEUTROPHILS % (AUTO) 87.1 % (43.0-81.0); PLATELET COUNT (AUTO) 175 /CMM (150-450); RED BLOOD CELL COUNT(AUTO) 4.84 MIL/uL (4.5-6.0); WHITE BLOOD COUNT (AUTO) 10.7 K/uL (4.3-11.0)
[2018-09-26 19:57] LABS: CALCIUM, SERUM 8.6 mg/dL (8.5-10.1); CREATININE 1.8 mg/dL (0.6-1.3); POTASSIUM 4.9 mmol/L (3.5-5.1)
[2018-09-26] MEDS ORDERED: methylPREDNISolone SOD SUCC 125 MG/2ML VIAL IV ONE (20:30)
[2018-09-26] MEDS ORDERED: IPRATROPIUM NEB FS 0.5 MG/2.5 ML AMPUL.NEB NEB ONE (20:30)
[2018-09-26] MEDS ORDERED: ALBUTEROL FS 2.5 MG/3 ML VIAL.NEB NEB ONE (20:30)
[2018-09-26] MEDS ORDERED: ASPIRIN 81 MG TAB.CHEW ONE ×2 (20:58→21:13)
--- NOTE | 2018-09-26 21:03 | NUR ---
VERBAL ORDER FROM DR Franki HAMILTON FOR ASPIRIN 324MG POPT REFUSED MEDICATION. ORDERED.
[2018-09-26] MEDS ORDERED: methylPREDNISolone SOD SUCC 125 MG/2ML VIAL ONE (21:07)
--- NOTE | 2018-09-26 21:22 | NUR ---
SPOKE WITH Pt IN REGARDS TO TAKING ASPIRIN AFTER Pt REFUSED AT FIRST. Pt AGREED TO TAKE THE ASPIRIN. ADMINISTERED 324MG OF ASPIRIN CHEW.
[2018-09-26] MEDS ORDERED: ASPIRIN 81 MG TAB.CHEW PO STA (21:53)
--- NOTE | 2018-09-26 22:04 | NUR ---
all ordered meds given
[2018-09-26] MEDS ORDERED: MORPHINE SULFATE INJ 4 MG/ML DISP.SYRIN IV STA (22:17)
--- NOTE | 2018-09-26 22:18 | NUR ---
REPORT GIVEN TO [facility] AYAZ RODRIGUES. WILL TRANSPORT Pt PER ACLS PROTOCOL.
[2018-09-26] MEDS ORDERED: ALBUTEROL FS 2.5 MG/3 ML VIAL.NEB ONE (22:19)
--- NOTE | 2018-09-26 22:19 | NUR ---
RT AT BEDSIDE GIVING BREATHING TREATMENT
[2018-09-26] MEDS ORDERED: IPRATROPIUM NEB FS 0.5 MG/2.5 ML AMPUL.NEB ONE (22:20)
[2018-09-26] MEDS ORDERED: MORPHINE SULFATE INJ 4 MG/ML DISP.SYRIN ONE (22:21)
--- NOTE | 2018-09-26 22:27 | NUR ---
administered morphine 4mg IV. c/o CP 02/04. iv access on RFA #22g
[2018-09-26 23:30] VITALS: BP 107/61
[2018-09-26 23:32] VITALS: BP 107/61
--- NOTE | 2018-09-26 23:32 | NUR ---
DECK BUILDER NOTE RECEIVED PT IN STABLE CONDITION A&O X3-4 ABLE TO MAKE NEEDS KNOWN. PT WAS BROUGHT BY ER STAFF VIA [facility]. PT. WITH STEADY GAIT ABLE TO AMBULATE FROM RNEY TO BED. SKIN IS INTACT PER PT. TELE MONITOR READING SR 70. PT HAS A PACEMAKER IN THE L CHEST WALL. IV IN THE R FA #22 S/L. ALL BELONGINGS ACCOUNTED AND SIGNED FOR. ALL CURRENT NEEDS MET. SAFETY PRECAUTIONS IN PLACE: BED LOW, LOCKED, UPPER RAILS UP AND CALL LIGHT WITHIN REACH. WILL CONT TO MONITOR.
--- NOTE | 2018-09-26 23:39 | NUR ---
Pt TRANSPORTED TO ROOM 307-2 PER ACLS PROTOCOL. VS STABLE.
--- NOTE | 2018-09-26 23:59 | NUR ---
MS RN NOTE NOTIFIED DR. KADE VALENTE (RADIOLOGY ADMINISTRATOR) OF PT ARRIVAL ON UNIT. NEW ORDERS NOTED AND CARRIED OUT.
[2018-09-27] MEDS ORDERED: MAGNESIUM HYDROXIDE 30 ML UDC PO PRN (01:00)
[2018-09-27] MEDS ORDERED: ZOLPIDEM TARTRATE 5 MG TABLET PO PRN (01:00)
[2018-09-27] MEDS ORDERED: POLYVINYL ALCOHOL 15 ML BOTTLE EACHEYE PRN (01:00)
[2018-09-27] MEDS ORDERED: ACETAMINOPHEN 325 MG TABLET PO PRN (01:00)
[2018-09-27] MEDS ORDERED: LORAZEPAM 1 MG TABLET PO PRN (01:00)
--- NOTE | 2018-09-27 01:12 | NUR ---
BITUMEN PLANT OPERATOR NOTE PRN MORPHINE 1 MG IV GIVEN FOR PAIN 02/04. WILL CONT TO MONITOR. Addendum: 09/27/18 at 0550 by BASHIR ALCANTARA RN MEDICATION GIVEN AT 0235 NOT AT 0112
--- NOTE | 2018-09-27 02:30 | NUR ---
BANKRUPTCY PARALEGAL NOTE REASSESSED PT'S PAIN. PT IS AWAKE WALKING AROUND FLOOR. STATES HE FEELS BETTER. WILL CONT TO MONITOR. Addendum: 09/27/18 at 0550 by BASHIR ALCANTARA RN REASSESSED AT 335 AM NOT AT 0230
[2018-09-27] MEDS: MORPHINE SULFATE INJ 2 MG/ML DISP.SYRIN IV PRN ×3 (02:35→18:42)
[2018-09-27 04:00] VITALS: BP 92/63
--- NOTE | 2018-09-27 06:37 | NUR ---
DOOR TO DOOR FUNDRAISING COLLECTOR NOTE CALLED KADE VALENTE (OIL SPRAYER) AND LEFT A MESSAGE IN REGARDS TO PT. LOW BP OF 78/37, 65, 92% ON RA, 18, 98.0. PT IS CURRENTLY ALERT ORIENTED NO SIGNS DISTRESS/SOB. NO C/O PAIN. NO DIZZINESS, N/V. WILL CONT TO MONITOR.
--- NOTE | 2018-09-27 06:44 | NUR ---
SOLAR DESIGN ENGINEER NOTE PT IN STABLE CONDITION A&O X3-4 ABLE TO MAKE NEEDS KNOWN. PT. WITH STEADY GAIT ABLE TO AMBULATE. TELE MONITOR READING SR 70 W/ PACEMAKER. IV IN THE R FA #22 S/L. ALL CURRENT NEEDS MET. SAFETY PRECAUTIONS IN PLACE: BED LOW, LOCKED, UPPER RAILS UP AND CALL LIGHT WITHIN REACH. WILL CONT TO MONITOR AND ENDORSE TO NEXT SHIFT FOR SONIDO.
--- NOTE | 2018-09-27 07:30 | NUR ---
MINE DEPUTY NOTES PATIENT RECEIVED RESTING INSIDE ROOM. AWAKE, ALERT AND ORIENTED X 3, VERBALLY RESPONSIVE AND RESPONDS TO VERBAL AND TACTILE STIMULI. NO ACUTE DISTRESS AT THIS TIME. NO CHANGES IN LOC NOTED AT THIS TIME. PATIENT AMBULATORY WITH USE OF CANE. SAFETY PRECAUTIONS IN PLACE. WILL CONTINUE TO MONITOR. BED LOCKED AND IN LOW POSITION. BILATERAL UPPER SIDE RAILS UP AND LOCKED. CALL LIGHT WITHIN EASY REACH
[2018-09-27 08:00] VITALS: BP 100/71
--- NOTE | 2018-09-27 08:03 | NUR ---
MRB ENGINEER NOTES PATIENT SEEN AND EXAMINED BY DR. STREET. AGREED TO PLACE PATIENT ON NPO UNTIL SEEN BY FISH AND GAME WARDEN FOR POSSIBLE TESTS. ALSO VERIFIED LASIX AND CARVEDILOL ORDERS. REPORTED TO DR STREET THAT PATIENT HAS LOW BLOOD PRESSURE. PER DR. STREET. OK TO GIVE LASIX AND CARVEDILOL. TO HOLD BOTH DOSES FOR SBP >85. PATIENT AWARE AND VERBALIZED UNDERSTANDING. WILL CONTINUE TO MONITOR
[2018-09-27] MEDS: BUDESONIDE RESPULE INH 0.25 MG/2 ML AMPUL.NEB NEB SCH ×2 (08:28→19:54)
[2018-09-27] MEDS ORDERED: CLOPIDOGREL BISULFATE 75 MG TABLET PO SCH (09:00)
[2018-09-27] MEDS: LACTULOSE 10 G/15 ML UDC (PYXIS) PO SCH ×2 (09:00→09:14)
[2018-09-27] MEDS ORDERED: predniSONE 20 MG TABLET PO SCH (09:00)
[2018-09-27] MEDS: CARVEDILOL 3.125 MG TABLET PO SCH ×3 (09:00→21:10)
[2018-09-27] MEDS ORDERED: CHOLECALCIFEROL 1,000 UNIT TABLET (VIT D3) PO SCH (09:00)
[2018-09-27] MEDS: FUROSEMIDE 40 MG TABLET PO SCH ×2 (09:12→16:27)
[2018-09-27] MEDS: BACLOFEN (10 MG) 10 MG TABLET PO SCH ×2 (09:14→16:27)
--- NOTE | 2018-09-27 09:21 | NUR ---
REAL ESTATE SALES MANAGER NOTES EXPLAINED AM MEDICATIONS TO PATIENT PRIOR TO MEDICATION ADMINISTRATION AND PATIENT AGREED TO TAKE ALL MEDS. DURING MEDICATION ADMINISTRATION, PATIENT VERBALIZED HE DOES NOT WANT TO TAKE CARVEDILOL AND LACTULOSE. RISKS AND BENEFITS EXPLAINED BUT TO NO AVAIL. PATIENT STRONGLY REFUSED. MD MADE AWARE
[2018-09-27 16:00] VITALS: BP 129/71
[2018-09-27] MEDS ORDERED: BUDE0.253 IH (16:02)
[2018-09-27] MEDS ORDERED: DIVA-76 PO (16:02)
[2018-09-27] MEDS ORDERED: DEXT15DR6 EACHEYE (16:02)
[2018-09-27] MEDS ORDERED: MAGN30OR PO (16:02)
[2018-09-27] MEDS ORDERED: LATA7.5D RIGHTEYE (16:02)
[2018-09-27] MEDS ORDERED: CLOP75TA15 PO (16:02)
[2018-09-27] MEDS ORDERED: BACL10TA PO (16:02)
[2018-09-27] MEDS ORDERED: OLAN2.5T3 PO (16:02)
[2018-09-27] MEDS ORDERED: FURO40TA5 PO (16:02)
[2018-09-27] MEDS ORDERED: LACT20SO4 PO (16:02)
[2018-09-27] MEDS ORDERED: LORA1TAB PO (16:02)
[2018-09-27] MEDS ORDERED: ZOLP5TAB8 PO (16:02)
--- NOTE | 2018-09-27 18:26 | NUR ---
MS RN NOTES PATIENT RESTING INSIDE ROOM. AWAKE, ALERT AND ORIENTED X 4, VERBALLY RESPONSIVE AND RESPONDS TO VERBAL AND TACTILE STIMULI. BREATHING EVEN AND UNLABORED. NO ACUTE DISTRESS AT THIS TIME. DENIES ANY PAIN OR DISCOMFORT. ALL NURSING NEEDS ATTENDED AND MET. PATIENT KEPT CLEAN, DRY AND COMFORTABLE. WILL ENDORSE TO INCOMING SHIFT FOR SONIDO. BED LOCKED AND IN LOW POSITION. BILATERAL UPPER SIDE RAILS UP AND LOCKED. CALL LIGHT WITHIN EASY REACH
--- NOTE | 2018-09-27 19:20 | NUR ---
MS RN OPENING NOTES RECEIVED PATIENT RESTING INSIDE ROOM. AWAKE, ALERT AND ORIENTED X 4, VERBALLY RESPONSIVE AND RESPONDS TO VERBAL AND TACTILE STIMULI. BREATHING EVEN AND UNLABORED. NO ACUTE DISTRESS AT THIS TIME. DENIES ANY PAIN OR DISCOMFORT. SAFETY MEASURES IN PLACE, CALL LIGHT WITHIN REACH. BED IN LOW, LOCKED POSITION. PATIENT STABLE ENDORSED BY THE AM RN. WILL CONTINUE TO MONITOR ACCORDINGLY
[2018-09-27 20:00] VITALS: BP 118/66
[2018-09-27 21:10] VITALS: BP 118/66
[2018-09-27] MEDS ORDERED: OLANZAPINE 2.5 MG TABLET PO SCH (22:00)
[2018-09-27] MEDS ORDERED: DIVALPROEX SODIUM 250 MG TABLET.DR PO SCH (22:00)
[2018-09-27] MEDS ORDERED: LATANOPROST EYE DROP 0.005% 2.5 ML BOTTLE RIGHTEYE SCH (22:00)
[2018-09-27] MEDS ORDERED: ATORVASTATIN 40 MG TABLET PO SCH (22:00)
--- NOTE | 2018-09-27 22:18 | NUR ---
RN NOTES BIODIESEL PLANT OPERATIONS ENGINEER noted Room 307 smelled marijuana. CN and RN notified. Patient 307-2 Keegan Valencia noted smoking marijuana. Operations Forester noted at bedside and immediately hid it. Patient denied the incident. Security was called. Patient claimed he has money and credit card to pay a hotel. Attending physician Dr. Goodson notified, with order patient ok for AMA as patient has been doing AMA several times. Roller [employer] Utility Worker notified. IV line and ID band taken out. AMA form signed. Incident report done. Patient accompanied by security.
[2018-09-28] MEDS ORDERED: SPIRONOLACTONE 25 MG TABLET PO SCH (09:00)
[2018-09-28] MEDS ORDERED: ASPIRIN 81 MG TAB.CHEW PO SCH (09:00)
== END 2018-09-27 20:05 | disposition left against medical advice (07) | DRG 190 ==
LOC: ER 18:54 → TELE 21:35 → MED 09-27 14:58
PROVIDERS: ADMIT Internal Medicine; ATTEND Internal Medicine
DX: J44.1 Chronic obstructive pulmonary disease with (acute) exacerbation (principal); N17.0 Acute kidney failure with tubular necrosis; I50.22 Chronic systolic (congestive) heart failure; I13.0 Hypertensive heart and chronic kidney disease with heart failure and stage 1 through stage 4 chronic kidney disease, or unspecified chronic kidney disease; R07.89 Other chest pain; I25.10 Atherosclerotic heart disease of native coronary artery without angina pectoris; I25.2 Old myocardial infarction; Z95.810 Presence of automatic (implantable) cardiac defibrillator; Z82.49 Family history of ischemic heart disease and other diseases of the circulatory system; Z79.899 Other long term (current) drug therapy; J44.9 Chronic obstructive pulmonary disease, unspecified; Z88.8 Allergy status to other drugs, medicaments and biological substances; Z79.51 Long term (current) use of inhaled steroids; I25.5 Ischemic cardiomyopathy; F10.10 Alcohol abuse, uncomplicated; Z86.59 Personal history of other mental and behavioral disorders; M19.90 Unspecified osteoarthritis, unspecified site; F32.9 Major depressive disorder, single episode, unspecified; N18.3 Chronic kidney disease, stage 3 (moderate); Z98.890 Other specified postprocedural states; F17.200 Nicotine dependence, unspecified, uncomplicated
CPT/HCPCS: 36415; 71045-TC; 80048-TC; 82550-TC; 83880; 84484-TC; 85025-TC; 87081-TC; 93307-TC; 94799-TC; G0378; J2270; J2930

== ENCOUNTER 2018-10-01 16:29 | Inpatient (IN) | payer MEDICARE, OTHER ==
[~2018-10-01] VITALS: Ht 177.8 cm; Wt 83.0 kg
[~2018-10-01 16:29] MED LIST changes: -ALBU18HF2 IH; -ARIP5TAB10 PO; +BACL10TA PO; -BENZ1TAB7 PO; -BISA10SU8 RC; +BUDE0.253 IH; +CLOP75TA15 PO; +DEXT15DR6 EACHEYE; +DIVA-76 PO; -DOCU-270 PO; -FAMO20TA8 PO; -FURO20TA4 PO; +FURO40TA5 PO; -GABA-532 PO; +LACT20SO4 PO; -LAMO25TA5 PEG; +LATA7.5D RIGHTEYE; +LORA1TAB PO; +MAGN30OR PO; +OLAN2.5T3 PO; -POTA10TA15 PO; +ZOLP5TAB8 PO
[2018-10-01 16:55] LABS: BASOPHILS # (AUTO) 0.1 /CMM (0.0-0.2); BASOPHILS % (AUTO) 0.7 % (0.0-2.0); EOSINOPHILS % (AUTO) 1.9 % (0.0-6.0); HEMATOCRIT 42 % (39-51); LYMPHOCYTES % (AUTO) 12.6 % (20.0-44.0); MEAN CORPUSCULAR HGB CONC 34 g/dl (31.0-36.0); MEAN CORPUSCULAR VOLUME 91 fL (80-96); MONOCYTES # (AUTO) 0.6 /CMM (0.1-1.30); MONOCYTES % (AUTO) 7.4 % (2.0-12.0); NEUTROPHILS # (AUTO) 6.3 /CMM (1.8-8.9); NEUTROPHILS % (AUTO) 77.4 % (43.0-81.0); PLATELET COUNT (AUTO) 174 /CMM (150-450); RED BLOOD CELL COUNT(AUTO) 4.59 MIL/uL (4.5-6.0); WHITE BLOOD COUNT (AUTO) 8.1 K/uL (4.3-11.0)
[2018-10-01] MEDS ORDERED: ONDANSETRON HCL/PF 4 MG/2 ML VIAL ONE (16:55)
[2018-10-01] MEDS ORDERED: MAG HYDROX/AL HYDROX/SIMETH 30 ML UDC ONE (16:55)
[2018-10-01] MEDS ORDERED: FAMOTIDINE/PF INJ 20 MG/2 ML VIAL IV ONE ×2 (16:55→17:00)
[2018-10-01] MEDS ORDERED: IV NS 0.9% 500 ML BAG IV ONE (17:00)
[2018-10-01] MEDS ORDERED: MAG HYDROX/AL HYDROX/SIMETH 30 ML UDC PO ONE (17:00)
[2018-10-01] MEDS ORDERED: ONDANSETRON HCL/PF 4 MG/2 ML VIAL IVP ONE (17:00)
[2018-10-01 17:03] LABS: CALCIUM, SERUM 8.2 mg/dL (8.5-10.1); CREATININE 1.7 mg/dL (0.6-1.3); POTASSIUM 3.8 mmol/L (3.5-5.1)
[2018-10-01 17:09] LABS: ALBUMIN 3.7 g/dL (3.4-5.0); BILIRUBIN,DIRECT 0.1 mg/dL (0.0-0.2); BILIRUBIN,TOTAL 0.3 mg/dL (0.2-1.0); TOTAL PROTEIN, SERUM 7.3 g/dL (6.4-8.2)
[2018-10-01] MEDS ORDERED: ASPIRIN 81 MG TAB.CHEW PO ONE (18:30)
[2018-10-01 19:03] VITALS: BP 119/77
[2018-10-01 20:00] VITALS: BP 110/68
[2018-10-01] MEDS ORDERED: IV NS 0.9% 500 ML IV PRN (20:00)
[2018-10-01] MEDS ORDERED: DOCUSATE SODIUM 100 MG CAPSULE PO PRN (20:00)
[2018-10-01] MEDS ORDERED: MORPHINE SULFATE INJ 2 MG/ML DISP.SYRIN IV PRN (20:00)
[2018-10-01] MEDS ORDERED: MAG HYDROX/AL HYDROX/SIMETH 30 ML UDC PO PRN (20:00)
[2018-10-01] MEDS ORDERED: Thiamine 100 MG in IV D5W 50 ML IV SCH (20:00)
[2018-10-01] MEDS ORDERED: ONDANSETRON HCL/PF 4 MG/2 ML VIAL IVP PRN (20:00)
[2018-10-01] MEDS ORDERED: Thiamine 100 MG/ML VIAL ONE (21:56)
[2018-10-01] MEDS: SIMVASTATIN 20 MG TABLET PO SCH (22:00)
[2018-10-02] VITALS: BP 92/46
[2018-10-02] MEDS: ACETAMINOPHEN 325 MG TABLET PO PRN ×2 (00:03→23:13)
[2018-10-02 04:00] VITALS: BP 120/77
[2018-10-02] MEDS ORDERED: MORPHINE SULFATE INJ 2 MG/ML DISP.SYRIN IV ONE (04:00)
[2018-10-02] MEDS: LORAZEPAM INJ 2 MG/ML VIAL IV PRN ×3 (04:13→19:08)
[2018-10-02 08:00] VITALS: BP 101/68
[2018-10-02] MEDS: NICOTINE PATCH (14MG) 14 MG PATCH.TD24 TD SCH (08:17)
[2018-10-02] MEDS: ENOXAPARIN SODIUM 40 MG/0.4 ML DISP.SYRIN SQ SCH (08:17)
[2018-10-02 09:29] LABS: BASOPHILS % (AUTO) 0.6 % (0.0-2.0); EOSINOPHILS % (AUTO) 3.3 % (0.0-6.0); HEMATOCRIT 41 % (39-51); HEMOGLOBIN 13.6 g/dL (13.5-17.5); LYMPHOCYTES # (AUTO) 0.9 /CMM (0.8-4.8); LYMPHOCYTES % (AUTO) 11.9 % (20.0-44.0); MEAN CORPUSCULAR HGB CONC 33 g/dl (31.0-36.0); MEAN CORPUSCULAR VOLUME 93 fL (80-96); MONOCYTES # (AUTO) 0.5 /CMM (0.1-1.30); MONOCYTES % (AUTO) 6.9 % (2.0-12.0); NEUTROPHILS # (AUTO) 5.7 /CMM (1.8-8.9); NEUTROPHILS % (AUTO) 77.3 % (43.0-81.0); PLATELET COUNT (AUTO) 142 /CMM (150-450); RED BLOOD CELL COUNT(AUTO) 4.43 MIL/uL (4.5-6.0); WHITE BLOOD COUNT (AUTO) 7.3 K/uL (4.3-11.0)
[2018-10-02] MEDS ORDERED: HYDROCODONE/APAP 5/325MG 1 EACH TABLET PO ONE (09:30)
[2018-10-02 09:43] LABS: CALCIUM, SERUM 7.8 mg/dL (8.5-10.1); CREATININE 1.1 mg/dL (0.6-1.3); MAGNESIUM 2.4 mg/dL (1.8-2.4); PHOSPHORUS 2.7 mg/dL (2.5-4.9); POTASSIUM 3.9 mmol/L (3.5-5.1)
[2018-10-02] MEDS: CHLORDIAZEPOXIDE HCL 5 MG CAPSULE PO SCH ×3 (11:21→17:43)
[2018-10-02] MEDS: MORPHINE SULFATE INJ 2 MG/ML DISP.SYRIN IV PRN ×2 (14:46→20:51)
[2018-10-02 16:00] VITALS: BP 114/76
[2018-10-02] MEDS: ALBUTEROL FS 2.5 MG/3 ML VIAL.NEB NEB PRN (16:28)
[2018-10-02 20:00] VITALS: BP 129/91
[2018-10-02] MEDS: THIAMINE HCL 100 MG TABLET PO SCH (20:45)
[2018-10-02] MEDS: CARVEDILOL 6.25 MG TABLET PO SCH (20:56)
[2018-10-02] MEDS: SIMVASTATIN 20 MG TABLET PO SCH (21:49)
[2018-10-03] MEDS: ALBUTEROL FS 2.5 MG/3 ML VIAL.NEB NEB PRN ×3 (00:21→12:07)
[2018-10-03] MEDS: MORPHINE SULFATE INJ 2 MG/ML DISP.SYRIN IV PRN ×6 (00:39→21:37)
[2018-10-03] MEDS: LORAZEPAM INJ 2 MG/ML VIAL IV PRN ×2 (01:16→22:13)
[2018-10-03 04:00] VITALS: BP 106/72
[2018-10-03 06:38] LABS: BASOPHILS # (AUTO) 0.1 /CMM (0.0-0.2); BASOPHILS % (AUTO) 0.7 % (0.0-2.0); EOSINOPHILS % (AUTO) 3.7 % (0.0-6.0); HEMATOCRIT 39 % (39-51); HEMOGLOBIN 13.4 g/dL (13.5-17.5); LYMPHOCYTES # (AUTO) 1.1 /CMM (0.8-4.8); LYMPHOCYTES % (AUTO) 13.2 % (20.0-44.0); MEAN CORPUSCULAR HGB CONC 34 g/dl (31.0-36.0); MEAN CORPUSCULAR VOLUME 92 fL (80-96); MONOCYTES # (AUTO) 0.7 /CMM (0.1-1.30); MONOCYTES % (AUTO) 7.9 % (2.0-12.0); NEUTROPHILS # (AUTO) 6.4 /CMM (1.8-8.9); NEUTROPHILS % (AUTO) 74.5 % (43.0-81.0); PLATELET COUNT (AUTO) 151 /CMM (150-450); RED BLOOD CELL COUNT(AUTO) 4.25 MIL/uL (4.5-6.0); WHITE BLOOD COUNT (AUTO) 8.6 K/uL (4.3-11.0)
[2018-10-03 07:10] LABS: ALBUMIN 3.3 g/dL (3.4-5.0); BILIRUBIN,TOTAL 0.4 mg/dL (0.2-1.0); CALCIUM, SERUM 8.5 mg/dL (8.5-10.1); CREATININE 1.3 mg/dL (0.6-1.3); MAGNESIUM 2.4 mg/dL (1.8-2.4); PHOSPHORUS 3.4 mg/dL (2.5-4.9); POTASSIUM 4.2 mmol/L (3.5-5.1); TOTAL PROTEIN, SERUM 6.6 g/dL (6.4-8.2)
[2018-10-03 08:00] VITALS: BP 101/80
[2018-10-03] MEDS: CHLORDIAZEPOXIDE HCL 5 MG CAPSULE PO SCH ×3 (08:30→17:51)
[2018-10-03] MEDS: BENAZEPRIL HCL 5 MG TABLET PO SCH (08:30)
[2018-10-03] MEDS: CARVEDILOL 6.25 MG TABLET PO SCH ×2 (08:31→21:00)
[2018-10-03] MEDS: ENOXAPARIN SODIUM 40 MG/0.4 ML DISP.SYRIN SQ SCH (08:37)
[2018-10-03] MEDS: NICOTINE PATCH (14MG) 14 MG PATCH.TD24 TD SCH (08:37)
[2018-10-03] MEDS: predniSONE 20 MG TABLET PO SCH (12:35)
[2018-10-03 16:00] VITALS: BP 117/84
[2018-10-03] MEDS: ALBUTEROL FS 2.5 MG/3 ML VIAL.NEB NEB SCH ×3 (16:12→22:57)
[2018-10-03 20:00] VITALS: BP 100/61
[2018-10-03] MEDS: SIMVASTATIN 20 MG TABLET PO SCH (21:37)
[2018-10-03] MEDS: THIAMINE HCL 100 MG TABLET PO SCH (21:37)
[2018-10-04] MEDS: MORPHINE SULFATE INJ 2 MG/ML DISP.SYRIN IV PRN ×4 (00:37→10:40)
[2018-10-04] MEDS: LORAZEPAM INJ 2 MG/ML VIAL IV PRN ×2 (01:19→09:20)
[2018-10-04] MEDS: ALBUTEROL FS 2.5 MG/3 ML VIAL.NEB NEB SCH ×3 (03:14→11:18)
[2018-10-04 04:38] VITALS: BP 98/69
[2018-10-04 08:00] VITALS: BP 103/59
[2018-10-04] MEDS: predniSONE 20 MG TABLET PO SCH (08:17)
[2018-10-04] MEDS: ENOXAPARIN SODIUM 40 MG/0.4 ML DISP.SYRIN SQ SCH (08:19)
[2018-10-04] MEDS: BENAZEPRIL HCL 5 MG TABLET PO SCH (08:20)
[2018-10-04] MEDS: CARVEDILOL 6.25 MG TABLET PO SCH (08:20)
[2018-10-04] MEDS: NICOTINE PATCH (14MG) 14 MG PATCH.TD24 TD SCH ×2 (08:21→09:27)
[2018-10-04] MEDS: CHLORDIAZEPOXIDE HCL 5 MG CAPSULE PO SCH ×2 (08:27→13:00)
[2018-10-04] MEDS ORDERED: CLOPIDOGREL BISULFATE 75 MG TABLET PO SCH (09:00)
[2018-10-04 10:16] LABS: *SPE A/G RATIO 1.2 (0.7-1.7); *SPE ALBUMIN 3.3 g/dL (2.9-4.4); *SPE ALPHA-1-GLOBULIN 0.2 g/dL (0.0-0.4); *SPE ALPHA-2-GLOBULIN 0.8 g/dL (0.4-1.0); *SPE GLOBULIN, TOTAL 2.8 g/dL (2.2-3.9); *SPE M-SPIKE Not Observed g/dL (Not Observed); *SPEGAMMA GLOBULIN 0.7 g/dL (0.4-1.8)
[2018-10-04 12:00] VITALS: BP 104/82
[2018-10-04 15:09] LABS: PTH, INTACT 111 pg/mL (15-65)
== END 2018-10-04 13:15 | DRG 280 ==
LOC: ER 16:31 → TELE1 18:37 → MEDSG1 10-02 10:39
PROVIDERS: ADMIT Internal Medicine; ATTEND Internal Medicine
DX: I25.119 Atherosclerotic heart disease of native coronary artery with unspecified angina pectoris (principal); I21.A1 Myocardial infarction type 2; N17.0 Acute kidney failure with tubular necrosis; J44.1 Chronic obstructive pulmonary disease with (acute) exacerbation; I13.0 Hypertensive heart and chronic kidney disease with heart failure and stage 1 through stage 4 chronic kidney disease, or unspecified chronic kidney disease; J98.11 Atelectasis; I50.22 Chronic systolic (congestive) heart failure; N17.9 Acute kidney failure, unspecified; I42.0 Dilated cardiomyopathy; F10.229 Alcohol dependence with intoxication, unspecified; Y90.2 Blood alcohol level of 40-59 mg/100 ml; I25.5 Ischemic cardiomyopathy; E86.0 Dehydration; N18.9 Chronic kidney disease, unspecified; F17.210 Nicotine dependence, cigarettes, uncomplicated; I25.2 Old myocardial infarction; Z95.0 Presence of cardiac pacemaker; Z95.5 Presence of coronary angioplasty implant and graft; E78.5 Hyperlipidemia, unspecified; J20.9 Acute bronchitis, unspecified; Z79.02 Long term (current) use of antithrombotics/antiplatelets; Z79.51 Long term (current) use of inhaled steroids; Z82.49 Family history of ischemic heart disease and other diseases of the circulatory system; F31.9 Bipolar disorder, unspecified
CPT/HCPCS: 36415; 71045-TC; 76770-TC; 80048-TC; 80053-TC; 80061-TC; 80076-TC; 82550-TC; 83690-TC; 83735-TC; 83970; 84100-TC; 84155; 84165; 84484-TC; 85025-TC; 87081-TC; 94799-TC; G0378; G0480; J1650; J2060; J2270; J2405; J3411; J3490; J7040; J7060